=== PATIENT | male | born 1945 | race African-American/Black ===

== ENCOUNTER 2018-01-02 16:42 | Inpatient (IN) | payer MEDICARE, OTHER ==
[~2018-01-02] VITALS: Ht 175.3 cm; Wt 60.8 kg
[2018-01-02] MEDS ORDERED: ALBUTEROL (0.083%) 2.5MG/3ML NEB HHN STA (17:06)
[2018-01-02] MEDS ORDERED: IPRATROPIUM BROMIDE (0.02%) 0.5MG/2.5ML NEB HHN STA (17:06)
[2018-01-02] MEDS ORDERED: METHYLPREDNISOLONE SOD SUCC 125 MG/2 ML VIAL IV STA (17:06)
[2018-01-02] MEDS ORDERED: CEFTRIAXONE SODIUM 1 G/VIAL IM ONE (17:15)
[2018-01-02] MEDS ORDERED: MAGNESIUM 2 G PREMIX 50 ML IV ONE (17:15)
[2018-01-02 17:27] LABS: BASOPHILS % 1.2 % (0.0-2.0); EOSINOPHILS % 1.1 % (0.0-5.0); HEMATOCRIT. 42.7 % (42.0-52.0); HEMOGLOBIN. 14.3 g/dL (14.0-18.0); LYMPHOCYTES % 23.6 % (20.0-50.0); MEAN CORPUSCULAR HEMOGLOBIN 29.4 pg (28.0-32.0); MEAN CORPUSCULAR VOLUME 87.4 fL (80.0-94.0); MEAN PLATELET VOLUME 8.9 fl (7.4-10.4); MONOCYTES % 8.2 % (2.0-8.0); NEUTROPHILS % 65.9 % (40.0-76.0); PLATELET 200 x1000/uL (130-400); RED BLOOD CELL COUNT 4.89 mill/uL (4.7-6.1); RED CELL DISTRIBUTION WIDTH 15.4 % (11.6-14.6)
[2018-01-02 17:40] LABS: CHLORIDE 98 mEq/L (98-107)
[2018-01-02] MEDS ORDERED: FUROSEMIDE 20MG/2ML VIAL IVP ONE (18:15)
[2018-01-02] MEDS ORDERED: CEFTRIAXONE 1 G PREMIX 50 ML IV ONE (18:30)
[2018-01-02] MEDS ORDERED: POTASSIUM CHLORIDE 20MEQ TABLET SR PO NR (18:45)
[2018-01-02] MEDS ORDERED: CLONIDINE 0.1MG TABLET PO PRN (18:45)
[2018-01-02] MEDS ORDERED: MAGNESIUM/ALUMINUM HYDROXIDE/SIMETHICONE 30ML UDC PO PRN (18:45)
[2018-01-02] MEDS ORDERED: DOCUSATE SODIUM 100MG CAPSULE PO PRN (18:45)
[2018-01-02] MEDS ORDERED: ONDANSETRON HCL 4MG/2ML INJ IV PRN (18:45)
[2018-01-02] MEDS ORDERED: NITROGLYCERIN 0.4MG TABLET SL SL PRN (18:45)
[2018-01-02] MEDS ORDERED: IPRATROPIUM/ALBUTEROL 0.5-3(2.5)MG/3ML NEB INH PRN (18:45)
[2018-01-02] MEDS ORDERED: NA PHOS,M-B/NA PHOS,DI-BA ENEMA 118ML PR PRN (18:45)
[2018-01-02] MEDS ORDERED: ACETAMINOPHEN 325MG TABLET PO PRN (18:45)
[2018-01-02] MEDS ORDERED: KCL 20MEQ/100ML PREMIX 100 ML IV NR (19:00)
[2018-01-02] MEDS ORDERED: MAGNESIUM SULFATE 2 GM in DEXTROSE 5% WATER 50 ML IV NR (19:00)
[2018-01-02] MEDS ORDERED: AZITHROMYCIN 500 MG in DEXT 5% WATER 250 ML IV SCH (21:30)
[2018-01-02 22:00] VITALS: BP 158/70
[2018-01-02] MEDS: FAMOTIDINE 20MG TABLET PO SCH (23:00)
[2018-01-02] MEDS ORDERED: LEVOFLOXACIN 500MG PREMIX 100 ML IV SCH (23:00)
[2018-01-02] MEDS: GUAIFENESIN/DM 600MG/30MG ER TAB 12HR PO SCH (23:00)
[2018-01-02] MEDS: FUROSEMIDE 20MG/2ML VIAL IVP SCH (23:01)
[2018-01-02] MEDS: METHYLPREDNISOLONE SOD SUCC 125 MG/2 ML VIAL IV SCH (23:01)
[2018-01-02] MEDS: SPIRONOLACTONE 25MG TABLET PO SCH (23:01)
[2018-01-02] MEDS: DILTIAZEM HCL 60MG TABLET PO SCH (23:01)
[2018-01-03] VITALS (8 sets, daily range): BP systolic 113–164; BP diastolic 58–75
[2018-01-03 00:08] LABS: CREATINE KINASE MB FRACTION 1.2 ng/mL (0.5-3.6)
[2018-01-03] MEDS ORDERED: HYDR-4009 MT (01:26)
[2018-01-03] MEDS ORDERED: LISI-604 MT (01:26)
[2018-01-03] MEDS: GUAIFENESIN 200MG/10ML SUGAR FREE UDC PO PRN ×4 (01:44→21:34)
[2018-01-03] MEDS: ZOLPIDEM TARTRATE 5MG TABLET PO PRN ×2 (01:44→23:22)
[2018-01-03 02:49] LABS: *AMPHETAMINES SCREEN URINE NEGATIVE (NEGATIVE); *BARBITURATES SCREEN URINE NEGATIVE (NEGATIVE); *BENZODIAZEPINES SCREEN URINE NEGATIVE (NEGATIVE); *COCAINE SCREEN URINE NEGATIVE (NEGATIVE); CANNABINOID URINE SCREEN NEGATIVE (NEGATIVE); METHADONE URINE SCREEN NEGATIVE (NEGATIVE); OPIATES URINE SCREEN PRESUMTIVE POSITIVE (NEGATIVE); PHENCYCLIDINE URINE SCREEN NEGATIVE (NEGATIVE)
[2018-01-03] MEDS: METHYLPREDNISOLONE SOD SUCC 125 MG/2 ML VIAL IV SCH ×3 (05:01→21:36)
[2018-01-03] MEDS: DILTIAZEM HCL 60MG TABLET PO SCH ×4 (05:02→23:22)
[2018-01-03 06:55] LABS: CREATINE KINASE 93 IU/L (39-308); CREATINE KINASE MB FRACTION 1.2 ng/mL (0.5-3.6)
[2018-01-03] MEDS: FUROSEMIDE 20MG/2ML VIAL IVP SCH ×2 (08:29→21:35)
[2018-01-03] MEDS: SPIRONOLACTONE 25MG TABLET PO SCH ×2 (08:30→21:34)
[2018-01-03] MEDS: TRAMADOL 50MG TABLET PO PRN ×3 (08:30→14:51)
[2018-01-03] MEDS: FAMOTIDINE 20MG TABLET PO SCH ×2 (08:30→21:34)
[2018-01-03] MEDS: GUAIFENESIN/DM 600MG/30MG ER TAB 12HR PO SCH ×2 (08:34→21:34)
[2018-01-03] MEDS ORDERED: INFLUENZA VIRUS VACCINE(AFLURIA) 0.5ML SYR IM ONE (10:00)
[2018-01-03 13:29] LABS: CHLORIDE 99 mEq/L (98-107)
[2018-01-03] MEDS: HYDROCODONE/ACETAMINOPHEN 5/325MG TABLET PO PRN ×2 (16:00→21:36)
[2018-01-03] MEDS: LEVOFLOXACIN 500MG PREMIX 100 ML IV SCH (18:03)
[2018-01-03] MEDS: ENOXAPARIN 40MG/0.4ML SYR SUBCUT SCH (21:34)
[2018-01-04] MEDS: IPRATROPIUM/ALBUTEROL 0.5-3(2.5)MG/3ML NEB HHN SCH ×6 (01:49→21:57)
[2018-01-04 04:40] VITALS: BP 126/60
[2018-01-04] MEDS: HYDROCODONE/ACETAMINOPHEN 5/325MG TABLET PO PRN ×3 (04:42→19:59)
[2018-01-04] MEDS: METHYLPREDNISOLONE SOD SUCC 125 MG/2 ML VIAL IV SCH ×3 (06:10→21:21)
[2018-01-04] MEDS: DILTIAZEM HCL 60MG TABLET PO SCH ×3 (06:21→17:43)
[2018-01-04 08:00] VITALS: BP 129/61
[2018-01-04] MEDS: GUAIFENESIN 200MG/10ML SUGAR FREE UDC PO PRN ×2 (09:03→17:44)
[2018-01-04] MEDS: FUROSEMIDE 20MG/2ML VIAL IVP SCH ×2 (09:04→21:22)
[2018-01-04] MEDS: GUAIFENESIN/DM 600MG/30MG ER TAB 12HR PO SCH ×2 (09:04→19:57)
[2018-01-04] MEDS: FAMOTIDINE 20MG TABLET PO SCH ×2 (09:04→19:57)
[2018-01-04] MEDS: SPIRONOLACTONE 25MG TABLET PO SCH ×2 (09:04→19:58)
[2018-01-04 12:00] VITALS: BP 129/75
[2018-01-04 16:00] VITALS: BP 139/61
[2018-01-04] MEDS: LEVOFLOXACIN 500MG PREMIX 100 ML IV SCH (17:43)
[2018-01-04 20:00] VITALS: BP 136/46
[2018-01-04] MEDS: ENOXAPARIN 40MG/0.4ML SYR SUBCUT SCH (21:23)
[2018-01-05] VITALS: BP 127/61
[2018-01-05] MEDS: ZOLPIDEM TARTRATE 5MG TABLET PO PRN (00:05)
[2018-01-05] MEDS: GUAIFENESIN 200MG/10ML SUGAR FREE UDC PO PRN ×3 (00:05→09:05)
[2018-01-05] MEDS: HYDROCODONE/ACETAMINOPHEN 5/325MG TABLET PO PRN ×2 (01:06→07:23)
[2018-01-05] MEDS: IPRATROPIUM/ALBUTEROL 0.5-3(2.5)MG/3ML NEB HHN SCH ×3 (01:12→09:12)
[2018-01-05 04:00] VITALS: BP 142/47
[2018-01-05] MEDS: METHYLPREDNISOLONE SOD SUCC 125 MG/2 ML VIAL IV SCH (05:38)
[2018-01-05] MEDS: DILTIAZEM HCL 60MG TABLET PO SCH ×2 (05:41)
[2018-01-05 08:00] VITALS: BP 133/95
[2018-01-05] MEDS: FUROSEMIDE 20MG/2ML VIAL IVP SCH (09:05)
[2018-01-05] MEDS: FAMOTIDINE 20MG TABLET PO SCH (09:06)
[2018-01-05] MEDS: GUAIFENESIN/DM 600MG/30MG ER TAB 12HR PO SCH (09:06)
[2018-01-05] MEDS: SPIRONOLACTONE 25MG TABLET PO SCH (09:06)
[2018-01-05] MEDS ORDERED: LEVOFLOXACIN 500MG TABLET PO SCH (11:00)
[2018-01-05 11:25] VITALS: BP 133/89
== END 2018-01-05 11:57 | disposition home or self-care (01) | DRG 291 ==
LOC: EDBD 16:42 → ER 16:42 → 7WST 18:22 → SUPCPDRO 18:31 → EDBEDREQTM 18:35 → EDBEDREQ 18:35 → ENRESERV 20:31 → 7WST 22:20
PROVIDERS: ADMIT Internal Medicine; ATTEND Internal Medicine
DX: I11.0 Hypertensive heart disease with heart failure (principal); J96.00 Acute respiratory failure, unspecified whether with hypoxia or hypercapnia; E44.1 Mild protein-calorie malnutrition; J44.1 Chronic obstructive pulmonary disease with (acute) exacerbation; Z68.1 Body mass index [BMI] 19.9 or less, adult; I50.33 Acute on chronic diastolic (congestive) heart failure; E87.6 Hypokalemia; F17.210 Nicotine dependence, cigarettes, uncomplicated; Z88.6 Allergy status to analgesic agent; Z71.6 Tobacco abuse counseling
CPT/HCPCS: 36415; 71045; 80048; 80061; 80305; 82550; 82553; 83036; 83880; 84484; 85379; 90686; 93005; 93306; 93970; 94640; 96374; 99285; G0482; J0456; J0696; J1650; J1940; J1956; J2930; J3475; J3480; J7050; J7060; J7611; J7620

== ENCOUNTER 2018-02-26 21:16 | Inpatient (IN) | payer OTHER ==
[~2018-02-26] VITALS: Ht 175.3 cm; Wt 63.5 kg
[~2018-02-26 21:16] MED LIST: HYDR-4009 MT; LISI-604 MT
[2018-02-26] MEDS ORDERED: METHYLPREDNISOLONE SOD SUCC 125 MG/2 ML VIAL IV STA (21:39)
[2018-02-26] MEDS ORDERED: IPRATROPIUM BROMIDE (0.02%) 0.5MG/2.5ML NEB HHN STA (21:39)
[2018-02-26] MEDS ORDERED: ALBUTEROL (0.083%) 2.5MG/3ML NEB HHN STA (21:39)
[2018-02-26] MEDS ORDERED: HYDROCODONE/ACETAMINOPHEN 5/325MG TABLET PO ONE (21:45)
[2018-02-26] MEDS ORDERED: LORAZEPAM 2MG/ML CPJ IV ONE (22:45)
[2018-02-26 22:53] LABS: BASOPHILS % 0.2 % (0.0-2.0); EOSINOPHILS % 0.2 % (0.0-5.0); HEMATOCRIT. 33.9 % (42.0-52.0); HEMOGLOBIN. 10.9 g/dL (14.0-18.0); LYMPHOCYTES % 9.9 % (20.0-50.0); MEAN CORPUSCULAR HEMOGLOBIN 28.6 pg (28.0-32.0); MEAN CORPUSCULAR VOLUME 88.9 fL (80.0-94.0); MEAN PLATELET VOLUME 8.2 fl (7.4-10.4); MONOCYTES % 8.1 % (2.0-8.0); NEUTROPHILS % 81.6 % (40.0-76.0); PLATELET 273 x1000/uL (130-400); RED BLOOD CELL COUNT 3.81 mill/uL (4.7-6.1); RED CELL DISTRIBUTION WIDTH 16.5 % (11.6-14.6)
[2018-02-26 22:56] LABS: CHLORIDE 93 mEq/L (98-107)
[2018-02-27] VITALS (7 sets, daily range): BP systolic 89–147; BP diastolic 36–74
[2018-02-27] MEDS ORDERED: SODIUM CHLORIDE 0.9% 1,000 ML IV ONE
[2018-02-27] MEDS ORDERED: SODIUM CHLORIDE 0.9% 1,000 ML IV SCH (01:52)
[2018-02-27] MEDS ORDERED: LORAZEPAM 2MG/ML CPJ IV PRN ×2 (11:00)
[2018-02-27] MEDS ORDERED: IPRATROPIUM/ALBUTEROL 0.5-3(2.5)MG/3ML NEB INH PRN (11:00)
[2018-02-27] MEDS ORDERED: ONDANSETRON HCL 4MG/2ML INJ IV PRN (11:00)
[2018-02-27] MEDS ORDERED: CLONIDINE 0.1MG TABLET PO PRN (11:00)
[2018-02-27] MEDS ORDERED: ACETAMINOPHEN 325MG TABLET PO PRN (11:00)
[2018-02-27] MEDS ORDERED: HYDROCODONE/ACETAMINOPHEN 5/325MG TABLET PO PRN (11:00)
[2018-02-27] MEDS ORDERED: AZITHROMYCIN 500 MG TABLET PO NR (11:00)
[2018-02-27] MEDS ORDERED: METHYLPREDNISOLONE SOD SUCC 40 MG/ML VIAL IV SCH (11:00)
[2018-02-27] MEDS ORDERED: IPRATROPIUM/ALBUTEROL 0.5-3(2.5)MG/3ML NEB HHN PRN (11:00)
[2018-02-27] MEDS ORDERED: ENOXAPARIN 30MG/0.3ML SYR SUBCUT SCH (11:30)
[2018-02-27] MEDS: IPRATROPIUM/ALBUTEROL 0.5-3(2.5)MG/3ML NEB HHN SCH ×3 (11:49→20:23)
[2018-02-27] MEDS: NICOTINE 14MG PATCH TD SCH (11:54)
[2018-02-27] MEDS: METHYLPREDNISOLONE SOD SUCC 40 MG/ML VIAL IV SCH ×2 (11:54→18:15)
[2018-02-27] MEDS: THIAMINE HCL 100MG TABLET PO SCH (11:55)
[2018-02-27] MEDS: FOLIC ACID 1MG TABLET PO SCH (11:55)
[2018-02-27] MEDS: MULTIVITAMINS,THER W-MINERALS TABLET PO SCH (11:55)
[2018-02-27] MEDS: SODIUM CHLORIDE 0.9% 1,000 ML IV SCH (11:55)
[2018-02-27 12:17] LABS: CHLORIDE 100 mEq/L (98-107)
[2018-02-27] MEDS ORDERED: DEXTROSE 50% WATER 50ML SYRINGE IV PRN (12:45)
[2018-02-27] MEDS ORDERED: LEVOFLOXACIN 500MG PREMIX 100 ML IV NR (13:00)
[2018-02-27 15:58] LABS: CREATINE KINASE 326 IU/L (39-308)
[2018-02-27 15:59] LABS: CREATINE KINASE MB FRACTION 4.3 ng/mL (0.5-3.6)
[2018-02-27 16:23] LABS: CLARITY URINE CLEAR (CLEAR); COLOR URINE YELLOW (YELLOW); KETONES URINE NEGATIVE (NEGATIVE); LEUKOCYTE ESTERASE URINE NEGATIVE (NEGATIVE); NITRITE URINE NEGATIVE (NEGATIVE); OCCULT BLOOD URINE NEGATIVE (NEGATIVE); PROTEIN URINE TRACE (NEGATIVE); SPECIFIC GRAVITY URINE 1.018 (1.005-1.030); UROBILINOGEN URINE 0.2 E.U./dL (0.2-1.0)
[2018-02-27] MEDS: HYDROMORPHONE HCL/PF 2MG/ML CPJ IV PRN (16:43)
[2018-02-27 16:49] LABS: *AMPHETAMINES SCREEN URINE NEGATIVE (NEGATIVE); *BARBITURATES SCREEN URINE NEGATIVE (NEGATIVE); *BENZODIAZEPINES SCREEN URINE NEGATIVE (NEGATIVE); *COCAINE SCREEN URINE NEGATIVE (NEGATIVE); METHADONE URINE SCREEN NEGATIVE (NEGATIVE); OPIATES URINE SCREEN PRESUMTIVE POSITIVE (NEGATIVE)
[2018-02-27 16:50] LABS: CANNABINOID URINE SCREEN NEGATIVE (NEGATIVE); PHENCYCLIDINE URINE SCREEN NEGATIVE (NEGATIVE)
[2018-02-27] MEDS: BLOOD SUGAR DIAGNOSTIC STRIP TEST SCH ×2 (17:17→20:59)
[2018-02-27] MEDS: INSULIN LISPRO 100 UNITS/ML SUBCUT SCH ×2 (17:42→21:00)
[2018-02-27] MEDS ORDERED: LEVOFLOXACIN 250MG PREMIX 50 ML IV SCH (21:00)
[2018-02-27] MEDS: GUAIFENESIN 600MG ER TABLET PO SCH (21:01)
[2018-02-27] MEDS: FLUTICASONE PROPIONATE 50MCG/SPRAY BOTTLE BOTHNSTRLS SCH (21:02)
[2018-02-28] VITALS: BP 140/65
[2018-02-28] MEDS: IPRATROPIUM/ALBUTEROL 0.5-3(2.5)MG/3ML NEB HHN SCH ×3 (00:09→07:11)
[2018-02-28 00:26] LABS: CREATINE KINASE 302 IU/L (39-308)
[2018-02-28 00:27] LABS: CREATINE KINASE MB FRACTION 5.3 ng/mL (0.5-3.6)
[2018-02-28] MEDS: HYDROMORPHONE HCL/PF 2MG/ML CPJ IV PRN ×2 (01:58→06:40)
[2018-02-28] MEDS: METHYLPREDNISOLONE SOD SUCC 40 MG/ML VIAL IV SCH (03:55)
[2018-02-28 04:00] VITALS: BP 137/53
[2018-02-28] MEDS: SODIUM CHLORIDE 0.9% 1,000 ML IV SCH (05:37)
[2018-02-28] MEDS: BLOOD SUGAR DIAGNOSTIC STRIP TEST SCH (06:04)
[2018-02-28] MEDS: INSULIN LISPRO 100 UNITS/ML SUBCUT SCH (06:30)
[2018-02-28 08:00] VITALS: BP 102/75
[2018-02-28 08:39] LABS: HEMATOCRIT. 29.8 % (42.0-52.0); MEAN CORPUSCULAR HEMOGLOBIN 29.4 pg (28.0-32.0); MEAN CORPUSCULAR VOLUME 87.5 fL (80.0-94.0); MEAN PLATELET VOLUME 8.2 fl (7.4-10.4); PLATELET 255 x1000/uL (130-400); RED BLOOD CELL COUNT 3.41 mill/uL (4.7-6.1); RED CELL DISTRIBUTION WIDTH 16.5 % (11.6-14.6)
[2018-02-28] MEDS ORDERED: AZITHROMYCIN 250 MG TABLET PO SCH (09:00)
[2018-02-28] MEDS: FLUTICASONE PROPIONATE 50MCG/SPRAY BOTTLE BOTHNSTRLS SCH (09:07)
[2018-02-28] MEDS: MULTIVITAMINS,THER W-MINERALS TABLET PO SCH (09:08)
[2018-02-28] MEDS: GUAIFENESIN 600MG ER TABLET PO SCH (09:08)
[2018-02-28] MEDS: NICOTINE 14MG PATCH TD SCH (09:08)
[2018-02-28] MEDS: FOLIC ACID 1MG TABLET PO SCH (09:08)
[2018-02-28] MEDS: THIAMINE HCL 100MG TABLET PO SCH (09:08)
[2018-02-28 09:14] LABS: CHLORIDE 101 mEq/L (98-107)
[2018-02-28 09:21] LABS: PHOSPHORUS 2.2 mg/dL (2.5-4.9)
[2018-02-28] MEDS ORDERED: ENOXAPARIN 40MG/0.4ML SYR SUBCUT SCH (12:00)
[2018-02-28] MEDS ORDERED: LEVOFLOXACIN 250MG PREMIX 50 ML IV SCH ×2 (13:00→21:00)
[2018-02-28 13:51] LABS: PLATELET ESTIMATE NORMAL
== END 2018-02-28 10:35 | disposition left against medical advice (07) | DRG 871 ==
LOC: ER 02-27 → 5WST 02-27 01:53 → ENRESERV 02-27 02:58
PROVIDERS: ADMIT Internal Medicine Nephrology; ATTEND Internal Medicine Nephrology
DX: A41.9 Sepsis, unspecified organism (principal); J18.9 Pneumonia, unspecified organism; J96.00 Acute respiratory failure, unspecified whether with hypoxia or hypercapnia; J44.1 Chronic obstructive pulmonary disease with (acute) exacerbation; N17.9 Acute kidney failure, unspecified; J44.0 Chronic obstructive pulmonary disease with (acute) lower respiratory infection; I50.9 Heart failure, unspecified; Z53.21 Procedure and treatment not carried out due to patient leaving prior to being seen by health care provider; M54.5 Low back pain; E11.9 Type 2 diabetes mellitus without complications; F10.10 Alcohol abuse, uncomplicated; F17.210 Nicotine dependence, cigarettes, uncomplicated; F41.9 Anxiety disorder, unspecified; G89.29 Other chronic pain; I11.0 Hypertensive heart disease with heart failure; Z88.6 Allergy status to analgesic agent; Z79.899 Other long term (current) drug therapy; Z71.6 Tobacco abuse counseling
CPT/HCPCS: 36415; 71045; 80048; 80305; 82550; 82553; 82962; 83735; 83880; 84100; 84484; 87804; 93005; 93970; 94640; 96361; 96374; 96375; 99285; J1170; J1650; J1815; J1956; J2060; J2920; J2930; J7030; J7611; J7620

== ENCOUNTER 2021-12-31 19:51 | Inpatient (IN) | payer MEDICARE, OTHER, MEDICAID ==
[~2021-12-31] VITALS: Ht 175.3 cm; Wt 93.0 kg
[~2021-12-31 19:51] MED LIST changes: -LISI-604 MT; +LISI20TA31 MT
[2021-12-31] MEDS ORDERED: IPRATROPIUM BROMIDE (0.02%) 0.5MG/2.5ML NEB HHN STA (20:43)
[2021-12-31] MEDS ORDERED: METHYLPREDNISOLONE SOD SUCC 125 MG/2 ML VIAL IV STA (20:43)
[2021-12-31] MEDS ORDERED: ALBUTEROL (0.083%) 2.5MG/3ML NEB HHN STA (20:43)
[2021-12-31] MEDS ORDERED: FUROSEMIDE 40MG/4ML VIAL IVP ONE (20:45)
[2021-12-31] MEDS ORDERED: AZITHROMYCIN 500MG/250ML 250 ML IV ONE (20:45)
[2021-12-31] MEDS ORDERED: ACETAMINOPHEN 325MG TABLET PO ONE (20:45)
[2021-12-31 22:16] LABS: BASOPHILS % 0.7 % (0.0-2.0); EOSINOPHILS % 2.8 % (0.0-5.0); HEMATOCRIT. 41.1 % (42.0-52.0); HEMOGLOBIN. 13.9 g/dL (14.0-18.0); LYMPHOCYTES % 51.6 % (20.0-50.0); MEAN CORPUSCULAR HEMOGLOBIN 29.1 pg (28.0-32.0); MEAN PLATELET VOLUME 8.6 fl (7.4-10.4); MONOCYTES % 7.9 % (2.0-8.0); PLATELET 166 x1000/uL (130-400); RED BLOOD CELL COUNT 4.77 mill/uL (4.7-6.1); RED CELL DISTRIBUTION WIDTH 15.4 % (11.6-14.6)
[2021-12-31 22:23] LABS: PROTHROMBIN TIME 10.9 sec (9.6-11.0)
[2021-12-31 22:38] LABS: CHLORIDE 99 mEq/L (98-107)
[2021-12-31] MEDS ORDERED: IPRATROPIUM/ALBUTEROL 0.5-3(2.5)MG/3ML NEB NEB PRN (23:30)
[2021-12-31] MEDS ORDERED: DOCUSATE SODIUM 100MG CAPSULE PO PRN (23:30)
[2021-12-31] MEDS ORDERED: ACETAMINOPHEN 325MG TABLET PO PRN (23:30)
[2021-12-31] MEDS ORDERED: DIPHENHYDRAMINE 50MG/ML VIAL IV PRN (23:30)
[2021-12-31] MEDS ORDERED: ONDANSETRON HCL 4MG/2ML INJ IV PRN (23:30)
[2022-01-01] MEDS: MORPHINE SULFATE 2 MG/ML CPJ (NOT FOR IM USE) IV PRN ×4 (01:14→23:25)
[2022-01-01 05:46] VITALS: BP 154/69
[2022-01-01 05:49] VITALS: BP 154/69
[2022-01-01] MEDS ORDERED: NALOXONE HCL 0.4MG/ML VIAL IV PRN (06:00)
[2022-01-01] MEDS: METHYLPREDNISOLONE SOD SUCC 125 MG/2 ML VIAL IV SCH ×4 (06:30→23:11)
[2022-01-01 08:00] VITALS: BP 170/68
[2022-01-01] MEDS ORDERED: ASPIRIN 81MG EC TABLET PO SCH (09:00)
[2022-01-01] MEDS: ENOXAPARIN 40MG/0.4ML SYR SUBCUT SCH (09:03)
[2022-01-01] MEDS: HYDROCODONE/ACETAMINOPHEN 5/325MG TABLET PO PRN (09:05)
[2022-01-01] MEDS: NITROGLYCERIN 0.4MG TABLET SL SL PRN (10:18)
[2022-01-01 11:05] LABS: *AMPHETAMINES SCREEN URINE NEGATIVE (NEGATIVE); *BARBITURATES SCREEN URINE NEGATIVE (NEGATIVE); *BENZODIAZEPINES SCREEN URINE NEGATIVE (NEGATIVE); *COCAINE SCREEN URINE NEGATIVE (NEGATIVE); CANNABINOID URINE SCREEN NEGATIVE (NEGATIVE); METHADONE URINE SCREEN NEGATIVE (NEGATIVE); OPIATES URINE SCREEN PRESUMTIVE POSITIVE (NEGATIVE); PHENCYCLIDINE URINE SCREEN NEGATIVE (NEGATIVE)
[2022-01-01 11:12] LABS: HEMATOCRIT. 38.9 % (42.0-52.0); HEMOGLOBIN. 13.2 g/dL (14.0-18.0); MEAN CORPUSCULAR HEMOGLOBIN 29.3 pg (28.0-32.0); MEAN CORPUSCULAR VOLUME 86.2 fL (80.0-94.0); MEAN PLATELET VOLUME 9.3 fl (7.4-10.4); PLATELET 148 x1000/uL (130-400); RED BLOOD CELL COUNT 4.51 mill/uL (4.7-6.1); RED CELL DISTRIBUTION WIDTH 15.1 % (11.6-14.6)
[2022-01-01 11:22] LABS: CHLORIDE 98 mEq/L (98-107)
[2022-01-01 11:25] LABS: PHOSPHORUS 2.2 mg/dL (2.5-4.9)
[2022-01-01 11:29] LABS: CREATINE KINASE MB FRACTION 1.5 ng/mL (0.5-3.6)
[2022-01-01 12:13] VITALS: BP 144/68
[2022-01-01] MEDS ORDERED: MAGNESIUM 2 G PREMIX 50 ML IV NR ×2 (14:00→23:00)
[2022-01-01 14:01] LABS: PLATELET ESTIMATE NORMAL
[2022-01-01 16:11] VITALS: BP 144/64
[2022-01-01 17:13] LABS: CREATINE KINASE MB FRACTION 1.3 ng/mL (0.5-3.6)
[2022-01-01 20:00] VITALS: BP 113/61
[2022-01-02] VITALS: BP 130/62
[2022-01-02 04:00] VITALS: BP 134/52
[2022-01-02] MEDS: METHYLPREDNISOLONE SOD SUCC 125 MG/2 ML VIAL IV SCH ×2 (05:17→12:47)
[2022-01-02] MEDS ORDERED: VERAPAMIL HCL 2.5 MG/1 ML 2ML VIAL IV ONE (07:37)
[2022-01-02] MEDS ORDERED: LIDOCAINE HCL/PF 2% 20MG/ML 5 ML/VIAL ONE (07:37)
[2022-01-02] MEDS ORDERED: IODIXANOL 320MG/ML 100 ML BOTTLE IV ONE (07:37)
[2022-01-02] MEDS ORDERED: HEPARIN 1000 UNITS/ML 10ML ONE (07:37)
[2022-01-02 08:00] VITALS: BP 153/76
[2022-01-02] MEDS ORDERED: MIDAZOLAM HCL 2 MG/2 ML VIAL ONE (08:07)
[2022-01-02] MEDS ORDERED: DIPHENHYDRAMINE 50MG/ML VIAL ONE (08:07)
[2022-01-02] MEDS ORDERED: FENTANYL CITRATE/PF 50MCG/ML 2ML VIAL ONE (08:08)
[2022-01-02] MEDS ORDERED: LIDOCAINE HCL 1% 20ML VIAL (Pyxis) INJ ONE (08:48)
[2022-01-02] MEDS: ENOXAPARIN 40MG/0.4ML SYR SUBCUT SCH (09:00)
[2022-01-02] MEDS ORDERED: HYDRALAZINE 20MG/ML VIAL ONE ×2 (09:18→10:19)
[2022-01-02] MEDS ORDERED: ATROPINE SULFATE 1MG/10ML SYR IV PRN (10:00)
[2022-01-02] MEDS ORDERED: NITROGLYCERIN 0.4MG TABLET SL SL ONE (10:15)
[2022-01-02] MEDS: BUDESONIDE 0.5MG/2ML NEB HHN SCH ×2 (10:35→22:10)
[2022-01-02 12:30] VITALS: BP 139/54
[2022-01-02 12:34] LABS: BG BASE EXCESS 6.1 mmol/L (-2.0-2.0); BG CARBOXYHEMOGLOBIN 0.4 % (0.5-1.5); BG DEOXYHEMOGLOBIN 8.8 % (0.0-5.0); BG HCO3 ACT 29.9 mmol/L (22.0-26.0); BG METHEMOGLOBIN 0.3 % (0.0-1.5); BG OXYGEN SATURATION 91.1 % (92.0-98.5); BG OXYHEMOGLOBIN 90.5 % (94.0-97.0); BG PCO2 40.2 mmHg (35.0-45.0); BG PO2 56.6 mmHg (75.0-100.0); BG SAMPLE SITE RIGHT RADIAL; BG TOTAL HEMOGLOBIN 13.7 g/dL (12.0-18.0); BG VENT MODE ROOM AIR
[2022-01-02] MEDS: MORPHINE SULFATE 2 MG/ML CPJ (NOT FOR IM USE) IV PRN ×3 (12:50→22:28)
[2022-01-02] MEDS: IPRATROPIUM/ALBUTEROL 0.5-3(2.5)MG/3ML NEB HHN SCH ×3 (12:59→22:10)
[2022-01-02 16:20] VITALS: BP 121/52
[2022-01-02] MEDS: NITROGLYCERIN 0.4MG TABLET SL SL PRN ×2 (18:37→23:05)
[2022-01-02] MEDS: HYDROCODONE/ACETAMINOPHEN 5/325MG TABLET PO PRN (19:41)
[2022-01-02 20:00] VITALS: BP 135/60
[2022-01-02] MEDS: METHYLPREDNISOLONE SOD SUCC 40 MG/ML VIAL IV SCH (21:47)
[2022-01-03] VITALS (7 sets, daily range): BP systolic 117–162; BP diastolic 46–73
[2022-01-03] MEDS: IPRATROPIUM/ALBUTEROL 0.5-3(2.5)MG/3ML NEB HHN SCH ×6 (00:50→21:46)
[2022-01-03] MEDS: METHYLPREDNISOLONE SOD SUCC 40 MG/ML VIAL IV SCH ×3 (05:42→21:43)
[2022-01-03] MEDS: HYDROCODONE/ACETAMINOPHEN 5/325MG TABLET PO PRN ×2 (05:43→05:55)
[2022-01-03] MEDS: MORPHINE SULFATE 2 MG/ML CPJ (NOT FOR IM USE) IV PRN ×3 (05:58→21:34)
[2022-01-03 07:44] LABS: HEMATOCRIT. 35.5 % (42.0-52.0); MEAN CORPUSCULAR HEMOGLOBIN 29.1 pg (28.0-32.0); PLATELET 136 x1000/uL (130-400); RED BLOOD CELL COUNT 4.13 mill/uL (4.7-6.1); RED CELL DISTRIBUTION WIDTH 15.6 % (11.6-14.6)
[2022-01-03] MEDS: BUDESONIDE 0.5MG/2ML NEB HHN SCH (09:19)
[2022-01-03] MEDS: ENOXAPARIN 40MG/0.4ML SYR SUBCUT SCH (09:28)
[2022-01-03] MEDS: NITROGLYCERIN 0.4MG TABLET SL SL PRN (09:29)
[2022-01-03 09:48] LABS: CHLORIDE 103 mEq/L (98-107)
[2022-01-03 09:55] LABS: PHOSPHORUS 3.6 mg/dL (2.5-4.9)
[2022-01-03] MEDS ORDERED: IPRA3AMP9 NEB (15:50)
[2022-01-03] MEDS ORDERED: FLUT1BLS12 IH (15:51)
[2022-01-03 16:45] LABS: PLATELET ESTIMATE NORMAL
[2022-01-04] VITALS: BP 142/74
[2022-01-04] MEDS: IPRATROPIUM/ALBUTEROL 0.5-3(2.5)MG/3ML NEB HHN SCH ×7 (01:04→22:30)
[2022-01-04 06:00] VITALS: BP 164/81
[2022-01-04] MEDS: METHYLPREDNISOLONE SOD SUCC 40 MG/ML VIAL IV SCH ×2 (07:02→13:10)
[2022-01-04 07:48] LABS: HEMATOCRIT. 36.1 % (42.0-52.0); HEMOGLOBIN. 12.1 g/dL (14.0-18.0); MEAN CORPUSCULAR HEMOGLOBIN 29.1 pg (28.0-32.0); MEAN CORPUSCULAR VOLUME 86.8 fL (80.0-94.0); MEAN PLATELET VOLUME 9.3 fl (7.4-10.4); PLATELET 121 x1000/uL (130-400); RED BLOOD CELL COUNT 4.16 mill/uL (4.7-6.1); RED CELL DISTRIBUTION WIDTH 15.1 % (11.6-14.6)
[2022-01-04 08:00] VITALS: BP 158/64
[2022-01-04 08:43] LABS: PLATELET ESTIMATE SLIGHTLY DECREASED
[2022-01-04] MEDS: ENOXAPARIN 40MG/0.4ML SYR SUBCUT SCH (08:46)
[2022-01-04] MEDS: MORPHINE SULFATE 2 MG/ML CPJ (NOT FOR IM USE) IV PRN ×3 (08:48→21:46)
[2022-01-04] MEDS: BUDESONIDE 0.5MG/2ML NEB HHN SCH ×2 (09:18→22:30)
[2022-01-04 10:09] LABS: CHLORIDE 102 mEq/L (98-107)
[2022-01-04 12:00] VITALS: BP 140/60
[2022-01-04] MEDS: AMLODIPINE 10MG TABLET PO SCH (15:09)
[2022-01-04 16:00] VITALS: BP 142/62
[2022-01-04] MEDS: PREDNISONE 20MG TABLET PO SCH (18:03)
[2022-01-05] MEDS: IPRATROPIUM/ALBUTEROL 0.5-3(2.5)MG/3ML NEB HHN SCH ×5 (01:53→20:39)
[2022-01-05] MEDS: MORPHINE SULFATE 2 MG/ML CPJ (NOT FOR IM USE) IV PRN ×4 (04:42→21:34)
[2022-01-05 07:07] LABS: BASOPHILS % 0.1 % (0.0-2.0); LYMPHOCYTES % 8.1 % (20.0-50.0); MEAN CORPUSCULAR HEMOGLOBIN 28.9 pg (28.0-32.0); MEAN CORPUSCULAR VOLUME 86.8 fL (80.0-94.0); MEAN PLATELET VOLUME 9.4 fl (7.4-10.4); MONOCYTES % 6.5 % (2.0-8.0); NEUTROPHILS % 85.3 % (40.0-76.0); PLATELET 120 x1000/uL (130-400); RED BLOOD CELL COUNT 4.15 mill/uL (4.7-6.1); RED CELL DISTRIBUTION WIDTH 15.3 % (11.6-14.6)
[2022-01-05 08:00] VITALS: BP 154/75
[2022-01-05 08:09] LABS: CHLORIDE 101 mEq/L (98-107)
[2022-01-05] MEDS ORDERED: LIDOCAINE HCL/PF 1% 10 MG/ML 5ML VIAL ONE (08:49)
[2022-01-05] MEDS: PREDNISONE 20MG TABLET PO SCH ×2 (09:01→17:15)
[2022-01-05] MEDS: ENOXAPARIN 40MG/0.4ML SYR SUBCUT SCH (09:01)
[2022-01-05] MEDS: AMLODIPINE 10MG TABLET PO SCH (09:01)
[2022-01-05] MEDS ORDERED: IOHEXOL-350 100 ML BOTTLE ONE ×2 (09:40→12:53)
[2022-01-05 12:00] VITALS: BP 140/70
[2022-01-05] MEDS ORDERED: HYDR-4001 MT (13:56)
[2022-01-05 16:00] VITALS: BP 128/68
[2022-01-05 20:00] VITALS: BP 136/70
[2022-01-06] VITALS: BP 134/59
[2022-01-06] MEDS: IPRATROPIUM/ALBUTEROL 0.5-3(2.5)MG/3ML NEB HHN SCH ×4 (00:42→11:36)
[2022-01-06] MEDS: MORPHINE SULFATE 2 MG/ML CPJ (NOT FOR IM USE) IV PRN ×3 (01:51→11:08)
[2022-01-06 04:00] VITALS: BP 134/69
[2022-01-06 07:02] LABS: BASOPHILS % 0.1 % (0.0-2.0); HEMATOCRIT. 33.5 % (42.0-52.0); HEMOGLOBIN. 11.4 g/dL (14.0-18.0); LYMPHOCYTES % 8.7 % (20.0-50.0); MEAN CORPUSCULAR HEMOGLOBIN 29.2 pg (28.0-32.0); MEAN PLATELET VOLUME 9.8 fl (7.4-10.4); MONOCYTES % 5.2 % (2.0-8.0); PLATELET 118 x1000/uL (130-400); RED CELL DISTRIBUTION WIDTH 15.2 % (11.6-14.6)
[2022-01-06 07:13] LABS: CHLORIDE 99 mEq/L (98-107)
[2022-01-06 08:00] VITALS: BP 130/73
[2022-01-06] MEDS: AMLODIPINE 10MG TABLET PO SCH (08:46)
[2022-01-06] MEDS: PREDNISONE 20MG TABLET PO SCH (08:46)
[2022-01-06] MEDS: ENOXAPARIN 40MG/0.4ML SYR SUBCUT SCH (08:47)
[2022-01-06 12:00] VITALS: BP 103/51
[2022-01-06] MEDS ORDERED: MED4 MT (12:54)
[2022-01-06] MEDS ORDERED: AMLO10TA80 PO (12:54)
[2022-01-06 13:29] VITALS: BP 103/51
== END 2022-01-06 14:50 | disposition home health service (06) | DRG 286 ==
LOC: ER 19:51 → EDBEDREQ 22:33 → EDBEDREQTM 22:33 → EDBEDREQ 01-01 00:07 → MICUSO 01-01 01:19 → 6WST 01-01 05:30
PROVIDERS: ADMIT Internal Medicine Nephrology; ATTEND Internal Medicine Nephrology
PROC: B2111ZZ Fluoroscopy of Multiple Coronary Arteries using Low Osmolar Contrast (ICD-10-PCS; principal; 2022-01-02)
PROC: 4A023N7 Measurement of Cardiac Sampling and Pressure, Left Heart, Percutaneous Approach (ICD-10-PCS; 2022-01-02)
PROC: B41F1ZZ Fluoroscopy of Right Lower Extremity Arteries using Low Osmolar Contrast (ICD-10-PCS; 2022-01-02)
PROC: 02HV33Z Insertion of Infusion Device into Superior Vena Cava, Percutaneous Approach (ICD-10-PCS; 2022-01-05)
PROC: B5181ZA Fluoroscopy of Superior Vena Cava using Low Osmolar Contrast, Guidance (ICD-10-PCS; 2022-01-05)
DX: I25.110 Atherosclerotic heart disease of native coronary artery with unstable angina pectoris (principal); J96.20 Acute and chronic respiratory failure, unspecified whether with hypoxia or hypercapnia; J44.1 Chronic obstructive pulmonary disease with (acute) exacerbation; E44.1 Mild protein-calorie malnutrition; I74.09 Other arterial embolism and thrombosis of abdominal aorta; I48.91 Unspecified atrial fibrillation; I16.0 Hypertensive urgency; D69.6 Thrombocytopenia, unspecified; E78.5 Hyperlipidemia, unspecified; I50.9 Heart failure, unspecified; E83.42 Hypomagnesemia; I11.0 Hypertensive heart disease with heart failure; I70.201 Unspecified atherosclerosis of native arteries of extremities, right leg; F17.210 Nicotine dependence, cigarettes, uncomplicated; Z20.822 Contact with and (suspected) exposure to COVID-19; Z68.30 Body mass index [BMI] 30.0-30.9, adult; Z99.81 Dependence on supplemental oxygen
CPT/HCPCS: 36415; 36573; 36600; 71045; 75635; 80048; 80053; 80305; 82375; 82550; 82553; 82805; 83735; 83880; 84100; 84484; 85025; 87426; 93005; 93306; 93454; 93923; 93970; 94640; 94644; 97162; 99285; C1725; C1760; C1769; C1887; C1893; C1894; J0360; J0456; J1200; J1644; J1650; J1940; J2250; J2270; J2920; J2930; J3010; J3475; J3490; J7512; J7626; Q9967

== ENCOUNTER 2022-01-26 17:51 | Inpatient (IN) | payer OTHER, MEDICAID ==
[~2022-01-26] VITALS: Ht 175.3 cm; Wt 66.4 kg
[~2022-01-26 17:51] MED LIST changes: +AMLO10TA80 PO; +FLUT1BLS12 IH; +HYDR-4001 MT; -HYDR-4009 MT; +IPRA3AMP9 NEB; -LISI20TA31 MT; +MED4 MT
[2022-01-26] MEDS ORDERED: ALBUTEROL (0.083%) 2.5MG/3ML NEB HHN STA (23:14)
[2022-01-26] MEDS ORDERED: METHYLPREDNISOLONE SOD SUCC 125 MG/2 ML VIAL IV STA (23:14)
[2022-01-26] MEDS ORDERED: IPRATROPIUM BROMIDE (0.02%) 0.5MG/2.5ML NEB HHN STA (23:14)
[2022-01-27] VITALS (7 sets, daily range): BP systolic 124–157; BP diastolic 58–85
[2022-01-27 00:29] LABS: BASOPHILS % 0.6 % (0.0-2.0); EOSINOPHILS % 2.8 % (0.0-5.0); HEMATOCRIT. 42.9 % (42.0-52.0); HEMOGLOBIN. 14.3 g/dL (14.0-18.0); LYMPHOCYTES % 48.4 % (20.0-50.0); MEAN CORPUSCULAR HEMOGLOBIN 29.2 pg (28.0-32.0); MEAN CORPUSCULAR VOLUME 87.6 fL (80.0-94.0); MEAN PLATELET VOLUME 8.1 fl (7.4-10.4); NEUTROPHILS % 38.2 % (40.0-76.0); PLATELET 151 x1000/uL (130-400); RED CELL DISTRIBUTION WIDTH 15.9 % (11.6-14.6)
[2022-01-27 00:35] LABS: CHLORIDE 102 mEq/L (98-107)
[2022-01-27] MEDS ORDERED: AZITHROMYCIN 500MG/250ML 250 ML IV NR (02:00)
[2022-01-27] MEDS ORDERED: CEFTRIAXONE 1 G PREMIX 50 ML IV NR (02:00)
[2022-01-27] MEDS ORDERED: IPRATROPIUM BROMIDE (0.02%) 0.5MG/2.5ML NEB HHN NR (02:00)
[2022-01-27] MEDS ORDERED: SODIUM CHLORIDE 0.9% 1,000 ML IV ONE (02:00)
[2022-01-27] MEDS ORDERED: METHYLPREDNISOLONE SOD SUCC 125 MG/2 ML VIAL IV NR (02:00)
[2022-01-27] MEDS ORDERED: ALBUTEROL (0.083%) 2.5MG/3ML NEB HHN NR (02:00)
[2022-01-27] MEDS ORDERED: HYDROCODONE/ACETAMINOPHEN 5/325MG TABLET PO ONE (02:45)
[2022-01-27] MEDS ORDERED: ACETAMINOPHEN 325MG TABLET PO PRN (09:30)
[2022-01-27] MEDS ORDERED: ONDANSETRON HCL 4MG/2ML INJ IV PRN (09:30)
[2022-01-27] MEDS ORDERED: DIPHENHYDRAMINE 50MG/ML VIAL IV PRN (09:30)
[2022-01-27] MEDS ORDERED: CLONIDINE 0.1MG TABLET PO PRN (09:30)
[2022-01-27] MEDS ORDERED: NALOXONE HCL 0.4MG/ML VIAL IV PRN (11:00)
[2022-01-27] MEDS: METHYLPREDNISOLONE SOD SUCC 125 MG/2 ML VIAL IV SCH ×2 (11:34→17:38)
[2022-01-27] MEDS: MORPHINE SULFATE 2 MG/ML CPJ (NOT FOR IM USE) IV PRN ×3 (11:35→22:24)
[2022-01-27] MEDS ORDERED: CLOPIDOGREL 75MG TABLET PO NR (13:30)
[2022-01-27] MEDS: ISOSORBIDE MONONITRATE 30MG TABLET SR 24HR PO SCH (14:39)
[2022-01-27 14:53] LABS: BG BASE EXCESS -1.3 mmol/L (-2.0-2.0); BG CARBOXYHEMOGLOBIN 0.1 % (0.5-1.5); BG DEOXYHEMOGLOBIN 5.1 % (0.0-5.0); BG FRACTION INSPIRED OXYGEN 28; BG OXYGEN SATURATION 94.9 % (92.0-98.5); BG OXYHEMOGLOBIN 94.8 % (94.0-97.0); BG PCO2 37.4 mmHg (35.0-45.0); BG PH 7.407 (7.350-7.450); BG PO2 76.5 mmHg (75.0-100.0); BG SAMPLE SITE RIGHT RADIAL; BG TOTAL HEMOGLOBIN 13.5 g/dL (12.0-18.0); BG VENT MODE NASAL CANNULA
[2022-01-27] MEDS: IPRATROPIUM/ALBUTEROL 0.5-3(2.5)MG/3ML NEB HHN PRN (18:13)
[2022-01-27] MEDS ORDERED: INFLUENZA VACCINE 05/PF 0.5 ML SYRINGE IM ONE (21:00)
[2022-01-28] VITALS: BP 122/59
[2022-01-28] MEDS: METHYLPREDNISOLONE SOD SUCC 125 MG/2 ML VIAL IV SCH ×4 (01:55→18:06)
[2022-01-28 04:00] VITALS: BP 127/60
[2022-01-28] MEDS: MORPHINE SULFATE 2 MG/ML CPJ (NOT FOR IM USE) IV PRN ×4 (04:16→21:47)
[2022-01-28 06:40] LABS: HEMATOCRIT. 35.9 % (42.0-52.0); HEMOGLOBIN. 12.1 g/dL (14.0-18.0); LYMPHOCYTES % 8.5 % (20.0-50.0); MEAN CORPUSCULAR HEMOGLOBIN 29.2 pg (28.0-32.0); MEAN CORPUSCULAR VOLUME 86.6 fL (80.0-94.0); MEAN PLATELET VOLUME 8.8 fl (7.4-10.4); MONOCYTES % 3.4 % (2.0-8.0); NEUTROPHILS % 88.1 % (40.0-76.0); PLATELET 160 x1000/uL (130-400); RED BLOOD CELL COUNT 4.14 mill/uL (4.7-6.1); RED CELL DISTRIBUTION WIDTH 15.6 % (11.6-14.6)
[2022-01-28 07:35] LABS: CHLORIDE 106 mEq/L (98-107)
[2022-01-28 08:00] VITALS: BP 135/60
[2022-01-28] MEDS: ISOSORBIDE MONONITRATE 30MG TABLET SR 24HR PO SCH (09:51)
[2022-01-28] MEDS: CLOPIDOGREL 75MG TABLET PO SCH (09:52)
[2022-01-28] MEDS: IPRATROPIUM/ALBUTEROL 0.5-3(2.5)MG/3ML NEB HHN PRN ×2 (11:10→16:20)
[2022-01-28 12:00] VITALS: BP 120/58
[2022-01-28 16:01] VITALS: BP 149/69
[2022-01-28 20:00] VITALS: BP 133/65
[2022-01-29] VITALS: BP 132/51
[2022-01-29] MEDS: METHYLPREDNISOLONE SOD SUCC 125 MG/2 ML VIAL IV SCH ×5 (01:22→23:23)
[2022-01-29] MEDS: MORPHINE SULFATE 2 MG/ML CPJ (NOT FOR IM USE) IV PRN ×3 (03:56→18:12)
[2022-01-29 04:00] VITALS: BP 150/74
[2022-01-29 08:00] VITALS: BP 145/69
[2022-01-29] MEDS: ISOSORBIDE MONONITRATE 30MG TABLET SR 24HR PO SCH (09:00)
[2022-01-29] MEDS: CLOPIDOGREL 75MG TABLET PO SCH (09:00)
[2022-01-29] MEDS ORDERED: LIDOCAINE HCL/PF 1% 10 MG/ML 5ML VIAL ONE ×2 (09:29→10:25)
[2022-01-29] MEDS ORDERED: VERAPAMIL HCL 2.5 MG/1 ML 2ML VIAL IV ONE (09:29)
[2022-01-29] MEDS ORDERED: DIPHENHYDRAMINE 50MG/ML VIAL ONE (09:29)
[2022-01-29] MEDS ORDERED: IODIXANOL 320MG/ML 100 ML BOTTLE IV ONE ×2 (09:32→11:30)
[2022-01-29] MEDS ORDERED: MIDAZOLAM HCL 2 MG/2 ML VIAL ONE ×2 (10:03→10:53)
[2022-01-29] MEDS ORDERED: FENTANYL CITRATE/PF 50MCG/ML 2ML VIAL ONE ×2 (10:03→11:17)
[2022-01-29] MEDS ORDERED: HEPARIN 1000 UNITS/ML 10ML ONE (11:07)
[2022-01-29] MEDS ORDERED: LABETALOL HCL 5MG/ML VIAL 20ML IV ONE (11:14)
[2022-01-29] MEDS ORDERED: NITROGLYCERIN 50MG PREMIX 250 ML IV ONE (11:17)
[2022-01-29] MEDS ORDERED: HYDRALAZINE 20MG/ML VIAL ONE (11:41)
[2022-01-29] MEDS ORDERED: CLOPIDOGREL 75MG TABLET ONE (11:45)
[2022-01-29] MEDS ORDERED: ASPIRIN 325MG TABLET ONE (11:45)
[2022-01-29 12:00] VITALS: BP 131/72
[2022-01-29] MEDS ORDERED: ATROPINE SULFATE 1MG/10ML SYR IV PRN (12:00)
[2022-01-29] MEDS: SODIUM CHLORIDE 0.45% 1,000 ML IV SCH ×2 (12:12→18:59)
[2022-01-29 16:00] VITALS: BP 141/71
[2022-01-29 20:22] VITALS: BP 146/63
[2022-01-30] VITALS: BP 140/74
[2022-01-30] MEDS: MORPHINE SULFATE 2 MG/ML CPJ (NOT FOR IM USE) IV PRN ×3 (00:23→11:22)
[2022-01-30 04:00] VITALS: BP 152/86
[2022-01-30] MEDS: SODIUM CHLORIDE 0.45% 1,000 ML IV SCH (05:24)
[2022-01-30] MEDS: METHYLPREDNISOLONE SOD SUCC 125 MG/2 ML VIAL IV SCH ×2 (06:03→11:16)
[2022-01-30 06:53] LABS: BASOPHILS % 0.1 % (0.0-2.0); HEMOGLOBIN. 11.8 g/dL (14.0-18.0); MEAN CORPUSCULAR HEMOGLOBIN 29.3 pg (28.0-32.0); MEAN CORPUSCULAR VOLUME 87.2 fL (80.0-94.0); MEAN PLATELET VOLUME 8.9 fl (7.4-10.4); MONOCYTES % 3.5 % (2.0-8.0); NEUTROPHILS % 88.4 % (40.0-76.0); PLATELET 173 x1000/uL (130-400); RED BLOOD CELL COUNT 4.02 mill/uL (4.7-6.1)
[2022-01-30 08:00] VITALS: BP 155/77
[2022-01-30] MEDS: ISOSORBIDE MONONITRATE 30MG TABLET SR 24HR PO SCH (08:04)
[2022-01-30] MEDS: CLOPIDOGREL 75MG TABLET PO SCH (08:04)
[2022-01-30 08:51] LABS: CHLORIDE 106 mEq/L (98-107)
[2022-01-30] MEDS ORDERED: ASPI-1406 MT (10:08)
[2022-01-30] MEDS ORDERED: MED4 MT (10:08)
[2022-01-30] MEDS ORDERED: FLUT1BLS12 IH (10:08)
[2022-01-30] MEDS ORDERED: ALBU18HF2 IH (10:08)
[2022-01-30] MEDS ORDERED: PANT40TA51 MT (10:08)
[2022-01-30] MEDS ORDERED: IPRA3AMP9 NEB (10:08)
[2022-01-30] MEDS ORDERED: CLOP75TA15 PO (10:08)
[2022-01-30] MEDS ORDERED: ISOS30TA91 PO (10:08)
[2022-01-30 10:19] VITALS: BP 159/83
[2022-01-30 12:00] VITALS: BP 149/80
== END 2022-01-30 17:31 | disposition home or self-care (01) | DRG 246 ==
LOC: ER 17:51 → 3WST 01-27 03:28 → EDBEDREQ 01-27 03:32 → ENRESERV 01-27 03:59 → ER 01-27 04:55
PROVIDERS: ADMIT Internal Medicine; ATTEND Internal Medicine
PROC: 027034Z Dilation of Coronary Artery, One Artery with Drug-eluting Intraluminal Device, Percutaneous Approach (ICD-10-PCS; principal; 2022-01-29)
PROC: 4A023N7 Measurement of Cardiac Sampling and Pressure, Left Heart, Percutaneous Approach (ICD-10-PCS; 2022-01-29)
PROC: B210YZZ Fluoroscopy of Single Coronary Artery using Other Contrast (ICD-10-PCS; 2022-01-29)
PROC: B41FYZZ Fluoroscopy of Right Lower Extremity Arteries using Other Contrast (ICD-10-PCS; 2022-01-29)
DX: I25.110 Atherosclerotic heart disease of native coronary artery with unstable angina pectoris (principal); J96.00 Acute respiratory failure, unspecified whether with hypoxia or hypercapnia; J44.1 Chronic obstructive pulmonary disease with (acute) exacerbation; I16.0 Hypertensive urgency; I73.9 Peripheral vascular disease, unspecified; Z20.822 Contact with and (suspected) exposure to COVID-19; I10 Essential (primary) hypertension; I48.91 Unspecified atrial fibrillation; F17.210 Nicotine dependence, cigarettes, uncomplicated; Z88.8 Allergy status to other drugs, medicaments and biological substances; Z79.899 Other long term (current) drug therapy; Z89.429 Acquired absence of other toe(s), unspecified side
CPT/HCPCS: 36415; 36600; 71045; 80048; 80053; 82375; 82805; 82962; 83605; 83880; 84484; 85025; 85347; 87426; 90686; 92928; 93005; 93454; 93970; 94640; 99291; C1725; C1760; C1769; C1874; C1887; C1893; C1894; J0360; J0456; J0696; J1200; J1644; J2250; J2270; J2930; J3010; J3490; Q9967

== ENCOUNTER 2022-02-27 17:00 | Inpatient (IN) | payer OTHER, MEDICAID ==
[~2022-02-27] VITALS: Ht 177.8 cm; Wt 75.3 kg
[~2022-02-27 17:00] MED LIST changes: +ALBU18HF2 IH; -AMLO10TA80 PO; +ASPI-1406 MT; +CLOP75TA15 PO; +ISOS30TA91 PO; +PANT40TA51 MT
[2022-02-27 18:15] LABS: BASOPHILS % 1.3 % (0.0-2.0); EOSINOPHILS % 1.7 % (0.0-5.0); HEMATOCRIT. 33.9 % (42.0-52.0); HEMOGLOBIN. 11.4 g/dL (14.0-18.0); LYMPHOCYTES % 61.2 % (20.0-50.0); MEAN CORPUSCULAR HEMOGLOBIN 29.7 pg (28.0-32.0); MEAN CORPUSCULAR VOLUME 88.3 fL (80.0-94.0); MEAN PLATELET VOLUME 8.5 fl (7.4-10.4); NEUTROPHILS % 25.8 % (40.0-76.0); PLATELET 158 x1000/uL (130-400); RED BLOOD CELL COUNT 3.84 mill/uL (4.7-6.1); RED CELL DISTRIBUTION WIDTH 16.8 % (11.6-14.6)
[2022-02-27] MEDS ORDERED: MORPHINE SULFATE 4 MG/ML CPJ (NOT FOR IM USE) IV ONE (18:15)
[2022-02-27] MEDS ORDERED: CLOPIDOGREL 75MG TABLET PO ONE (18:15)
[2022-02-27 18:25] LABS: CHLORIDE 104 mEq/L (98-107)
[2022-02-27] MEDS ORDERED: NITROGLYCERIN 50MG PREMIX 250 ML IV ONE (18:30)
[2022-02-27] MEDS ORDERED: NITROGLYCERIN 0.4MG TABLET SL SL ONE (18:30)
[2022-02-27] MEDS ORDERED: NITROGLYCERIN 50MG PREMIX 250 ML IV NR (18:45)
[2022-02-27] MEDS ORDERED: IOHEXOL-350 100 ML BOTTLE ONE ×2 (19:31→21:49)
[2022-02-27] MEDS ORDERED: IPRATROPIUM BROMIDE (0.02%) 0.5MG/2.5ML NEB HHN STA (19:35)
[2022-02-27] MEDS ORDERED: METHYLPREDNISOLONE SOD SUCC 125 MG/2 ML VIAL IV STA (19:35)
[2022-02-27] MEDS ORDERED: NITROGLYCERIN OINT 1GM/INCH UDPKT TD ONE (19:45)
[2022-02-27] MEDS ORDERED: SODIUM CHLORIDE 0.9% 1,000 ML IV ONE (19:45)
[2022-02-27] MEDS: ALBUTEROL (0.083%) 2.5MG/3ML NEB HHN SCH ×3 (20:49→21:20)
[2022-02-27] MEDS: MORPHINE SULFATE 2 MG/ML CPJ (NOT FOR IM USE) IV PRN (22:42)
[2022-02-27] MEDS ORDERED: NALOXONE HCL 0.4MG/ML VIAL IV PRN (22:45)
[2022-02-28] MEDS ORDERED: METHYLPREDNISOLONE SOD SUCC 125 MG/2 ML VIAL IV STA (00:21)
[2022-02-28] MEDS ORDERED: IPRATROPIUM BROMIDE (0.02%) 0.5MG/2.5ML NEB HHN STA (00:21)
[2022-02-28] MEDS ORDERED: MAGNESIUM 2 G PREMIX 50 ML IV ONE (00:30)
[2022-02-28] MEDS: ALBUTEROL (0.083%) 2.5MG/3ML NEB HHN SCH ×4 (00:30→00:53)
[2022-02-28] MEDS: MORPHINE SULFATE 2 MG/ML CPJ (NOT FOR IM USE) IV PRN ×3 (03:48→13:44)
[2022-02-28] MEDS ORDERED: ASPIRIN 81MG TABLET PO SCH (09:00)
[2022-02-28] MEDS: CLOPIDOGREL 75MG TABLET PO SCH (10:05)
[2022-02-28] MEDS: ASPIRIN 81MG TABLET PO SCH (10:05)
[2022-02-28] MEDS ORDERED: HYDRALAZINE 20MG/ML VIAL IV NR (16:00)
[2022-02-28] MEDS ORDERED: FUROSEMIDE 20MG/2ML VIAL IVP NR (16:00)
[2022-02-28] MEDS: NIFEDIPINE XL 30MG TAB PO SCH (17:08)
[2022-02-28] MEDS: IPRATROPIUM BROMIDE (0.02%) 0.5MG/2.5ML NEB HHN SCH (17:09)
[2022-02-28] MEDS: NITROGLYCERIN OINT 1GM/INCH UDPKT TD SCH (18:23)
[2022-02-28] MEDS: METHYLPREDNISOLONE SOD SUCC 40 MG/ML VIAL IV SCH (18:24)
[2022-02-28] MEDS: HYDROCODONE/ACETAMINOPHEN 10/325MG TABLET PO PRN (18:43)
[2022-02-28] MEDS: FAMOTIDINE 20MG TABLET PO SCH (21:17)
[2022-03-01] MEDS: IPRATROPIUM BROMIDE (0.02%) 0.5MG/2.5ML NEB HHN SCH ×7 (00:45→20:45)
[2022-03-01] MEDS: HYDROCODONE/ACETAMINOPHEN 10/325MG TABLET PO PRN ×3 (00:55→20:21)
[2022-03-01] MEDS: METHYLPREDNISOLONE SOD SUCC 40 MG/ML VIAL IV SCH ×3 (01:07→18:11)
[2022-03-01] MEDS: NITROGLYCERIN OINT 1GM/INCH UDPKT TD SCH ×3 (08:07→21:58)
[2022-03-01] MEDS: CLOPIDOGREL 75MG TABLET PO SCH (08:40)
[2022-03-01] MEDS: NIFEDIPINE XL 30MG TAB PO SCH (08:41)
[2022-03-01] MEDS: ASPIRIN 81MG TABLET PO SCH (08:50)
[2022-03-01 10:00] VITALS: BP 133/67
[2022-03-01] MEDS ORDERED: KETOROLAC 30MG/ML VIAL IV SCH (11:30)
[2022-03-01 12:00] VITALS: BP 140/68
[2022-03-01] MEDS: FUROSEMIDE 20MG/2ML VIAL IVP SCH (14:09)
[2022-03-01] MEDS ORDERED: MORPHINE SULFATE 2 MG/ML CPJ (NOT FOR IM USE) IV NR (15:45)
[2022-03-01 16:00] VITALS: BP_SYST 148; BP_SYST 150; BP_DIAS 69; BP_DIAS 80
[2022-03-01 16:29] LABS: BASOPHILS % 0.1 % (0.0-2.0); HEMATOCRIT. 38.9 % (42.0-52.0); LYMPHOCYTES % 7.8 % (20.0-50.0); MEAN CORPUSCULAR HEMOGLOBIN 30.1 pg (28.0-32.0); MEAN CORPUSCULAR VOLUME 90.1 fL (80.0-94.0); MEAN PLATELET VOLUME 8.8 fl (7.4-10.4); MONOCYTES % 4.7 % (2.0-8.0); NEUTROPHILS % 87.4 % (40.0-76.0); PLATELET 168 x1000/uL (130-400); RED BLOOD CELL COUNT 4.32 mill/uL (4.7-6.1); RED CELL DISTRIBUTION WIDTH 16.6 % (11.6-14.6)
[2022-03-01 16:53] LABS: CHLORIDE 99 mEq/L (98-107)
[2022-03-01 20:00] VITALS: BP 116/50
[2022-03-01] MEDS: FAMOTIDINE 20MG TABLET PO SCH (20:21)
[2022-03-02] VITALS: BP 143/68
[2022-03-02] MEDS: IPRATROPIUM BROMIDE (0.02%) 0.5MG/2.5ML NEB HHN SCH ×5 (00:10→15:52)
[2022-03-02] MEDS: METHYLPREDNISOLONE SOD SUCC 40 MG/ML VIAL IV SCH ×3 (01:46→18:52)
[2022-03-02 04:00] VITALS: BP 134/70
[2022-03-02] MEDS: NITROGLYCERIN OINT 1GM/INCH UDPKT TD SCH ×2 (06:12→13:13)
[2022-03-02 08:00] VITALS: BP 157/94
[2022-03-02] MEDS ORDERED: ENOXAPARIN 40MG/0.4ML SYR SUBCUT SCH (09:00)
[2022-03-02] MEDS: NIFEDIPINE XL 30MG TAB PO SCH (09:32)
[2022-03-02] MEDS: HYDROCODONE/ACETAMINOPHEN 10/325MG TABLET PO PRN ×3 (09:32→16:08)
[2022-03-02] MEDS: CLOPIDOGREL 75MG TABLET PO SCH (09:32)
[2022-03-02] MEDS: ASPIRIN 81MG TABLET PO SCH ×2 (09:33→09:34)
[2022-03-02] MEDS: FUROSEMIDE 20MG/2ML VIAL IVP SCH (09:37)
[2022-03-02] MEDS ORDERED: P20 MT (11:08)
[2022-03-02] MEDS ORDERED: FURO-152 MT (11:08)
[2022-03-02 12:00] VITALS: BP 142/72
[2022-03-02] MEDS ORDERED: HYDR-4009 MT (12:03)
[2022-03-02] MEDS ORDERED: IPRA3AMP9 NEB (12:34)
[2022-03-02 16:00] VITALS: BP 119/69
[2022-03-02 18:49] VITALS: BP 150/69
== END 2022-03-02 19:55 | disposition home or self-care (01) | DRG 291 ==
LOC: ER 17:00 → MICUSO 21:24 → EDBEDREQTM 21:31 → EDBEDREQ 21:31 → EDBEDREQSVC 02-28 14:44 → 7EST 03-01 08:46
PROVIDERS: ADMIT Internal Medicine; ATTEND Internal Medicine
DX: I11.0 Hypertensive heart disease with heart failure (principal); I50.31 Acute diastolic (congestive) heart failure; J96.01 Acute respiratory failure with hypoxia; J44.1 Chronic obstructive pulmonary disease with (acute) exacerbation; E44.0 Moderate protein-calorie malnutrition; E87.6 Hypokalemia; Z20.822 Contact with and (suspected) exposure to COVID-19; I25.10 Atherosclerotic heart disease of native coronary artery without angina pectoris; I73.9 Peripheral vascular disease, unspecified; Z88.8 Allergy status to other drugs, medicaments and biological substances; Z79.899 Other long term (current) drug therapy; Z68.23 Body mass index [BMI] 23.0-23.9, adult; Z88.6 Allergy status to analgesic agent; Z95.5 Presence of coronary angioplasty implant and graft; Z87.891 Personal history of nicotine dependence
CPT/HCPCS: 36415; 71045; 71275; 74174; 76604; 80048; 80053; 83605; 83880; 84484; 85025; 87426; 93005; 93306; 94640; 99285; C9803; J0360; J1650; J1885; J1940; J2270; J2920; J2930; J3475; J3490; J7030; Q9967

== ENCOUNTER 2022-03-14 17:54 | Inpatient (IN) | payer BC, MEDICAID ==
[~2022-03-14] VITALS: Ht 177.8 cm; Wt 68.6 kg
[~2022-03-14 17:54] MED LIST changes: +FURO-152 MT; -HYDR-4001 MT; +HYDR-4009 MT; -MED4 MT; +P20 MT
[2022-03-14 18:32] LABS: BASOPHILS % 1.3 % (0.0-2.0); EOSINOPHILS % 0.8 % (0.0-5.0); HEMATOCRIT. 38.4 % (42.0-52.0); LYMPHOCYTES % 28.8 % (20.0-50.0); MEAN CORPUSCULAR HEMOGLOBIN 30.4 pg (28.0-32.0); MEAN CORPUSCULAR VOLUME 89.8 fL (80.0-94.0); MEAN PLATELET VOLUME 8.6 fl (7.4-10.4); NEUTROPHILS % 58.1 % (40.0-76.0); PLATELET 158 x1000/uL (130-400); RED BLOOD CELL COUNT 4.27 mill/uL (4.7-6.1)
[2022-03-14 18:39] LABS: CHLORIDE 102 mEq/L (98-107)
[2022-03-14] MEDS ORDERED: MORPHINE SULFATE 4 MG/ML CPJ (NOT FOR IM USE) IV ONE (19:45)
[2022-03-14] MEDS ORDERED: DOCUSATE SODIUM 100MG CAPSULE PO PRN (21:30)
[2022-03-14] MEDS ORDERED: MAGNESIUM/ALUMINUM HYDROXIDE/SIMETHICONE 30ML UDC PO PRN (21:30)
[2022-03-14] MEDS ORDERED: ONDANSETRON HCL 4MG/2ML INJ IV PRN (21:30)
[2022-03-14] MEDS ORDERED: CLONIDINE 0.1MG TABLET PO PRN (21:30)
[2022-03-14] MEDS ORDERED: NITROGLYCERIN 0.4MG TABLET SL SL PRN (21:30)
[2022-03-14] MEDS ORDERED: ACETAMINOPHEN 325MG TABLET PO PRN (21:30)
[2022-03-14 23:20] LABS: CREATINE KINASE MB FRACTION 2.2 ng/mL (0.5-3.6)
[2022-03-14 23:22] LABS: T4 FREE 1.09 ng/dL (0.76-1.46)
[2022-03-14 23:49] LABS: FOLIC ACID (FOLATE) SERUM 10.8 ng/mL (>5.38)
[2022-03-15] MEDS: KETOROLAC 15MG/ML VIAL IV PRN ×3 (02:37→21:06)
[2022-03-15] MEDS: IPRATROPIUM/ALBUTEROL 0.5-3(2.5)MG/3ML NEB NEB PRN ×2 (02:50→07:20)
[2022-03-15] MEDS: ZOLPIDEM TARTRATE 5MG TABLET PO PRN ×2 (04:01→21:12)
[2022-03-15 05:10] LABS: BASOPHILS % 0.5 % (0.0-2.0); EOSINOPHILS % 0.9 % (0.0-5.0); HEMATOCRIT. 34.2 % (42.0-52.0); HEMOGLOBIN. 11.7 g/dL (14.0-18.0); LYMPHOCYTES % 22.3 % (20.0-50.0); MEAN CORPUSCULAR HEMOGLOBIN 30.4 pg (28.0-32.0); MEAN CORPUSCULAR VOLUME 88.9 fL (80.0-94.0); MEAN PLATELET VOLUME 8.7 fl (7.4-10.4); MONOCYTES % 11.1 % (2.0-8.0); NEUTROPHILS % 65.2 % (40.0-76.0); PLATELET 126 x1000/uL (130-400); RED BLOOD CELL COUNT 3.85 mill/uL (4.7-6.1); RED CELL DISTRIBUTION WIDTH 16.4 % (11.6-14.6)
[2022-03-15 05:11] LABS: CHLORIDE 102 mEq/L (98-107)
[2022-03-15 05:20] LABS: PHOSPHORUS 3.4 mg/dL (2.5-4.9)
[2022-03-15] MEDS ORDERED: IPRATROPIUM/ALBUTEROL 0.5-3(2.5)MG/3ML NEB HHN SCH (06:00)
[2022-03-15] MEDS: METHYLPREDNISOLONE SOD SUCC 125 MG/2 ML VIAL IV SCH ×3 (06:34→21:03)
[2022-03-15 06:44] LABS: CREATINE KINASE MB FRACTION 1.9 ng/mL (0.5-3.6)
[2022-03-15] MEDS ORDERED: LIDOCAINE HCL/PF 1% 2ML VIAL ONE (08:00)
[2022-03-15] MEDS ORDERED: ASPIRIN 81MG EC TABLET PO SCH (09:00)
[2022-03-15] MEDS: AZITHROMYCIN 250 MG in DEXT 5% WATER 250 ML IV SCH (09:30)
[2022-03-15] MEDS: FAMOTIDINE 20MG TABLET PO SCH ×2 (09:43→21:02)
[2022-03-15] MEDS: CLOPIDOGREL 75MG TABLET PO SCH (09:43)
[2022-03-15] MEDS: ISOSORBIDE MONONITRATE 30MG TABLET SR 24HR PO SCH (09:43)
[2022-03-15 10:14] LABS: BG BASE EXCESS 0.2 mmol/L (-2.0-2.0); BG CARBOXYHEMOGLOBIN 0.6 % (0.5-1.5); BG DEOXYHEMOGLOBIN 3.6 % (0.0-5.0); BG FRACTION INSPIRED OXYGEN 28; BG HCO3 ACT 24.6 mmol/L (22.0-26.0); BG METHEMOGLOBIN 0.9 % (0.0-1.5); BG OXYGEN SATURATION 96.3 % (92.0-98.5); BG OXYHEMOGLOBIN 94.9 % (94.0-97.0); BG PCO2 39.1 mmHg (35.0-45.0); BG PH 7.417 (7.350-7.450); BG PO2 84.5 mmHg (75.0-100.0); BG SAMPLE SITE LEFT RADIAL; BG TOTAL HEMOGLOBIN 13.7 g/dL (12.0-18.0); BG VENT MODE NASAL CANNULA
[2022-03-15 12:37] VITALS: BP 127/70
[2022-03-15 12:56] VITALS: BP 127/70
[2022-03-15] MEDS: FUROSEMIDE 20MG/2ML VIAL IVP SCH (15:30)
[2022-03-15] MEDS ORDERED: ALBUTEROL (0.083%) 2.5MG/3ML NEB HHN PRN (15:45)
[2022-03-15] MEDS ORDERED: IPRATROPIUM BROMIDE (0.02%) 0.5MG/2.5ML NEB HHN PRN (15:45)
[2022-03-15 16:00] VITALS: BP 118/66
[2022-03-15] MEDS: ALBUTEROL (0.083%) 2.5MG/3ML NEB HHN SCH ×2 (17:00→20:28)
[2022-03-15] MEDS: IPRATROPIUM BROMIDE (0.02%) 0.5MG/2.5ML NEB HHN SCH ×2 (17:01→20:27)
[2022-03-15] MEDS: ACETAMINOPHEN 325MG TABLET PO PRN (17:33)
[2022-03-15 20:00] VITALS: BP 130/83
[2022-03-15] MEDS: GUAIFENESIN 600MG ER TABLET PO SCH (21:03)
[2022-03-15] MEDS: ENOXAPARIN 40MG/0.4ML SYR SUBCUT SCH (21:07)
[2022-03-16] VITALS: BP 116/77
[2022-03-16 04:00] VITALS: BP 138/75
[2022-03-16] MEDS: ALBUTEROL (0.083%) 2.5MG/3ML NEB HHN SCH ×4 (04:27→21:35)
[2022-03-16] MEDS: IPRATROPIUM BROMIDE (0.02%) 0.5MG/2.5ML NEB HHN SCH ×4 (04:27→21:35)
[2022-03-16] MEDS: KETOROLAC 15MG/ML VIAL IV PRN ×3 (04:45→19:55)
[2022-03-16 05:39] LABS: HEMOGLOBIN. 12.3 g/dL (14.0-18.0); MEAN CORPUSCULAR VOLUME 90.8 fL (80.0-94.0); MEAN PLATELET VOLUME 9.9 fl (7.4-10.4); PLATELET 62 x1000/uL (130-400); RED BLOOD CELL COUNT 4.08 mill/uL (4.7-6.1); RED CELL DISTRIBUTION WIDTH 16.2 % (11.6-14.6)
[2022-03-16 05:55] LABS: CHLORIDE 101 mEq/L (98-107)
[2022-03-16 05:59] LABS: PHOSPHORUS 3.6 mg/dL (2.5-4.9)
[2022-03-16] MEDS: METHYLPREDNISOLONE SOD SUCC 125 MG/2 ML VIAL IV SCH ×3 (06:12→21:16)
[2022-03-16 08:00] VITALS: BP 148/98
[2022-03-16] MEDS: AZITHROMYCIN 250 MG in DEXT 5% WATER 250 ML IV SCH (08:59)
[2022-03-16] MEDS: FUROSEMIDE 20MG/2ML VIAL IVP SCH (09:00)
[2022-03-16] MEDS: CLOPIDOGREL 75MG TABLET PO SCH (09:03)
[2022-03-16] MEDS: ISOSORBIDE MONONITRATE 30MG TABLET SR 24HR PO SCH (09:03)
[2022-03-16] MEDS: GUAIFENESIN 600MG ER TABLET PO SCH ×2 (09:03→21:15)
[2022-03-16] MEDS: FAMOTIDINE 20MG TABLET PO SCH ×2 (09:03→21:15)
[2022-03-16] MEDS: ACETAMINOPHEN 325MG TABLET PO PRN (09:03)
[2022-03-16 12:00] VITALS: BP 109/45
[2022-03-16 12:30] LABS: *AMPHETAMINES SCREEN URINE NEGATIVE (NEGATIVE); *BARBITURATES SCREEN URINE NEGATIVE (NEGATIVE); *BENZODIAZEPINES SCREEN URINE NEGATIVE (NEGATIVE); *COCAINE SCREEN URINE NEGATIVE (NEGATIVE); CANNABINOID URINE SCREEN NEGATIVE (NEGATIVE); METHADONE URINE SCREEN NEGATIVE (NEGATIVE); OPIATES URINE SCREEN PRESUMTIVE POSITIVE (NEGATIVE); PHENCYCLIDINE URINE SCREEN NEGATIVE (NEGATIVE)
[2022-03-16 16:00] VITALS: BP 118/66
[2022-03-16 20:00] VITALS: BP 128/65
[2022-03-16] MEDS: ZOLPIDEM TARTRATE 5MG TABLET PO PRN (21:15)
[2022-03-16] MEDS: ENOXAPARIN 40MG/0.4ML SYR SUBCUT SCH (21:21)
[2022-03-17] VITALS: BP 123/69
[2022-03-17] MEDS: IPRATROPIUM BROMIDE (0.02%) 0.5MG/2.5ML NEB HHN SCH ×3 (01:05→20:00)
[2022-03-17] MEDS: ALBUTEROL (0.083%) 2.5MG/3ML NEB HHN SCH ×4 (01:06→20:00)
[2022-03-17] MEDS: KETOROLAC 15MG/ML VIAL IV PRN ×4 (03:52→22:41)
[2022-03-17 04:00] VITALS: BP 143/65
[2022-03-17] MEDS: METHYLPREDNISOLONE SOD SUCC 125 MG/2 ML VIAL IV SCH ×2 (05:59→13:14)
[2022-03-17 08:00] VITALS: BP 134/73
[2022-03-17] MEDS: GUAIFENESIN 200MG/10ML SUGAR FREE UDC PO PRN ×3 (09:10→22:38)
[2022-03-17] MEDS: FUROSEMIDE 20MG/2ML VIAL IVP SCH (09:10)
[2022-03-17] MEDS: GUAIFENESIN 600MG ER TABLET PO SCH ×2 (09:11→21:15)
[2022-03-17] MEDS: ISOSORBIDE MONONITRATE 30MG TABLET SR 24HR PO SCH (09:11)
[2022-03-17] MEDS: CLOPIDOGREL 75MG TABLET PO SCH (09:11)
[2022-03-17] MEDS: FAMOTIDINE 20MG TABLET PO SCH ×2 (09:11→21:15)
[2022-03-17] MEDS: AZITHROMYCIN 250 MG in DEXT 5% WATER 250 ML IV SCH (09:11)
[2022-03-17 12:00] VITALS: BP 130/69
[2022-03-17 12:03] LABS: HEMATOCRIT. 35.8 % (42.0-52.0); MEAN CORPUSCULAR HEMOGLOBIN 29.9 pg (28.0-32.0); MEAN CORPUSCULAR VOLUME 89.5 fL (80.0-94.0); MEAN PLATELET VOLUME 9.4 fl (7.4-10.4); PLATELET 124 x1000/uL (130-400); RED CELL DISTRIBUTION WIDTH 16.2 % (11.6-14.6)
[2022-03-17 12:21] LABS: CHLORIDE 102 mEq/L (98-107)
[2022-03-17 12:28] LABS: PHOSPHORUS 3.4 mg/dL (2.5-4.9)
[2022-03-17] MEDS: ACETAMINOPHEN 325MG TABLET PO PRN (13:17)
[2022-03-17 15:13] LABS: PLATELET ESTIMATE DECREASED
[2022-03-17 16:00] VITALS: BP 141/73
[2022-03-17 20:00] VITALS: BP 111/60
[2022-03-17] MEDS: METHYLPREDNISOLONE SOD SUCC 40 MG/ML VIAL IV SCH (21:16)
[2022-03-17] MEDS: ENOXAPARIN 40MG/0.4ML SYR SUBCUT SCH (21:16)
[2022-03-17] MEDS: ZOLPIDEM TARTRATE 5MG TABLET PO PRN (22:38)
[2022-03-18] VITALS (8 sets, daily range): BP systolic 97–165; BP diastolic 52–83
[2022-03-18] MEDS: ALBUTEROL (0.083%) 2.5MG/3ML NEB HHN SCH ×4 (02:10→20:34)
[2022-03-18] MEDS: IPRATROPIUM BROMIDE (0.02%) 0.5MG/2.5ML NEB HHN SCH ×4 (02:10→20:33)
[2022-03-18] MEDS: ACETAMINOPHEN 325MG TABLET PO PRN ×2 (05:54→12:45)
[2022-03-18] MEDS: GUAIFENESIN 600MG ER TABLET PO SCH ×2 (08:47→21:27)
[2022-03-18] MEDS: FAMOTIDINE 20MG TABLET PO SCH ×2 (08:47→21:27)
[2022-03-18] MEDS: CLOPIDOGREL 75MG TABLET PO SCH (08:47)
[2022-03-18] MEDS: METHYLPREDNISOLONE SOD SUCC 40 MG/ML VIAL IV SCH ×2 (08:47→21:26)
[2022-03-18] MEDS: ISOSORBIDE MONONITRATE 30MG TABLET SR 24HR PO SCH (08:49)
[2022-03-18] MEDS: FUROSEMIDE 20MG/2ML VIAL IVP SCH (08:51)
[2022-03-18] MEDS: AZITHROMYCIN 250 MG in DEXT 5% WATER 250 ML IV SCH (08:51)
[2022-03-18] MEDS: CILOSTAZOL 50 MG TABLET PO SCH ×2 (09:24→21:27)
[2022-03-18] MEDS: KETOROLAC 15MG/ML VIAL IV PRN ×3 (09:24→21:28)
[2022-03-18 09:54] LABS: BASOPHILS % 0.1 % (0.0-2.0); HEMATOCRIT. 38.3 % (42.0-52.0); HEMOGLOBIN. 12.8 g/dL (14.0-18.0); LYMPHOCYTES % 13.4 % (20.0-50.0); MEAN CORPUSCULAR HEMOGLOBIN 30.2 pg (28.0-32.0); MEAN CORPUSCULAR VOLUME 90.5 fL (80.0-94.0); MEAN PLATELET VOLUME 9.3 fl (7.4-10.4); MONOCYTES % 3.4 % (2.0-8.0); NEUTROPHILS % 83.1 % (40.0-76.0); PLATELET 116 x1000/uL (130-400); RED BLOOD CELL COUNT 4.24 mill/uL (4.7-6.1); RED CELL DISTRIBUTION WIDTH 16.4 % (11.6-14.6)
[2022-03-18 10:07] LABS: CHLORIDE 101 mEq/L (98-107)
[2022-03-18 16:30] LABS: PLATELET ESTIMATE SLIGHTLY DECREASED
[2022-03-18] MEDS: ZOLPIDEM TARTRATE 5MG TABLET PO PRN (21:27)
[2022-03-18] MEDS: ENOXAPARIN 40MG/0.4ML SYR SUBCUT SCH (21:27)
[2022-03-19] VITALS (12 sets, daily range): BP systolic 102–161; BP diastolic 40–81
[2022-03-19] MEDS: IPRATROPIUM BROMIDE (0.02%) 0.5MG/2.5ML NEB HHN SCH ×4 (01:02→21:35)
[2022-03-19] MEDS: ALBUTEROL (0.083%) 2.5MG/3ML NEB HHN SCH ×4 (01:02→21:35)
[2022-03-19] MEDS: GUAIFENESIN 200MG/10ML SUGAR FREE UDC PO PRN ×2 (04:14→10:23)
[2022-03-19] MEDS: KETOROLAC 15MG/ML VIAL IV PRN ×4 (04:39→22:07)
[2022-03-19] MEDS: FAMOTIDINE 20MG TABLET PO SCH ×2 (08:56→20:42)
[2022-03-19] MEDS: AZITHROMYCIN 250 MG TABLET PO SCH (08:56)
[2022-03-19] MEDS: GUAIFENESIN 600MG ER TABLET PO SCH ×2 (08:56→20:42)
[2022-03-19] MEDS: CILOSTAZOL 50 MG TABLET PO SCH ×2 (08:56→20:42)
[2022-03-19] MEDS: METHYLPREDNISOLONE SOD SUCC 40 MG/ML VIAL IV SCH (08:57)
[2022-03-19] MEDS: CLOPIDOGREL 75MG TABLET PO SCH (08:57)
[2022-03-19] MEDS: ISOSORBIDE MONONITRATE 30MG TABLET SR 24HR PO SCH (08:57)
[2022-03-19] MEDS: FUROSEMIDE 20MG/2ML VIAL IVP SCH (08:58)
[2022-03-19] MEDS ORDERED: AZITHROMYCIN 500 MG TABLET PO SCH (09:00)
[2022-03-19] MEDS ORDERED: HEPARIN 1000 UNITS/ML 10ML ONE (11:59)
[2022-03-19] MEDS ORDERED: IODIXANOL 320MG/ML 100 ML BOTTLE IV ONE ×2 (11:59→13:15)
[2022-03-19] MEDS ORDERED: MIDAZOLAM HCL 2 MG/2 ML VIAL ONE ×2 (12:18→13:27)
[2022-03-19] MEDS ORDERED: FENTANYL CITRATE/PF 50MCG/ML 2ML VIAL ONE ×2 (12:18→13:27)
[2022-03-19] MEDS ORDERED: LIDOCAINE HCL 1% 50ML VIAL (10MG/ML) ONE (12:20)
[2022-03-19] MEDS ORDERED: SODIUM CHLORIDE 0.9% 500 ML IV SCH ×2 (17:03→17:15)
[2022-03-19 18:20] LABS: HEMATOCRIT 32.3 % (42.0-52.0); HEMOGLOBIN 11.1 g/dL (14.0-18.0)
[2022-03-19] MEDS: RIVAROXABAN 2.5 MG TABLET PO SCH (18:23)
[2022-03-19] MEDS: ZOLPIDEM TARTRATE 5MG TABLET PO PRN (22:05)
[2022-03-20] MEDS: ALBUTEROL (0.083%) 2.5MG/3ML NEB HHN SCH ×3 (01:21→13:23)
[2022-03-20] MEDS: IPRATROPIUM BROMIDE (0.02%) 0.5MG/2.5ML NEB HHN SCH ×3 (01:21→13:23)
[2022-03-20 03:32] VITALS: BP 113/55
[2022-03-20] MEDS: KETOROLAC 15MG/ML VIAL IV PRN (04:50)
[2022-03-20] MEDS: RIVAROXABAN 2.5 MG TABLET PO SCH (06:15)
[2022-03-20 08:00] VITALS: BP 115/59
[2022-03-20] MEDS ORDERED: LIDOCAINE HCL 1% 10 MG/ML 10ML VIAL ONE (08:09)
[2022-03-20] MEDS: FUROSEMIDE 20MG/2ML VIAL IVP SCH (09:00)
[2022-03-20] MEDS ORDERED: PREDNISONE 20MG TABLET PO SCH (09:00)
[2022-03-20] MEDS: AZITHROMYCIN 250 MG TABLET PO SCH (09:33)
[2022-03-20] MEDS: CLOPIDOGREL 75MG TABLET PO SCH (09:33)
[2022-03-20] MEDS: ISOSORBIDE MONONITRATE 30MG TABLET SR 24HR PO SCH (09:33)
[2022-03-20] MEDS: CILOSTAZOL 50 MG TABLET PO SCH (09:33)
[2022-03-20] MEDS: FAMOTIDINE 20MG TABLET PO SCH (09:34)
[2022-03-20] MEDS: GUAIFENESIN 600MG ER TABLET PO SCH (09:34)
[2022-03-20] MEDS: GUAIFENESIN 200MG/10ML SUGAR FREE UDC PO PRN (09:45)
[2022-03-20] MEDS ORDERED: IOHEXOL-350 100 ML BOTTLE ONE (10:47)
[2022-03-20 12:19] VITALS: BP 115/67
[2022-03-20] MEDS ORDERED: KETOROLAC 15MG/ML VIAL IV SCH (12:30)
[2022-03-20 12:43] VITALS: BP 115/67
== END 2022-03-20 17:55 | disposition home or self-care (01) | DRG 270 ==
LOC: ER 17:54 → MICUSO 20:12 → EDBEDREQ 20:20 → EDBEDREQTM 20:20 → SUPCPDRO 21:21 → 3WST 03-15 13:00
PROVIDERS: ADMIT Internal Medicine; ATTEND Internal Medicine
PROC: 5A09357 Assistance with Respiratory Ventilation, Less than 24 Consecutive Hours, Continuous Positive Airway Pressure (ICD-10-PCS; principal; 2022-03-14)
PROC: 04CK3ZZ Extirpation of Matter from Right Femoral Artery, Percutaneous Approach (ICD-10-PCS; 2022-03-19)
PROC: 04CM3ZZ Extirpation of Matter from Right Popliteal Artery, Percutaneous Approach (ICD-10-PCS; 2022-03-19)
PROC: 047K3ZZ Dilation of Right Femoral Artery, Percutaneous Approach (ICD-10-PCS; 2022-03-19)
PROC: 047M3ZZ Dilation of Right Popliteal Artery, Percutaneous Approach (ICD-10-PCS; 2022-03-19)
PROC: B41F1ZZ Fluoroscopy of Right Lower Extremity Arteries using Low Osmolar Contrast (ICD-10-PCS; 2022-03-19)
PROC: B41G1ZZ Fluoroscopy of Left Lower Extremity Arteries using Low Osmolar Contrast (ICD-10-PCS; 2022-03-19)
PROC: 02HV33Z Insertion of Infusion Device into Superior Vena Cava, Percutaneous Approach (ICD-10-PCS; 2022-03-20)
PROC: B5181ZA Fluoroscopy of Superior Vena Cava using Low Osmolar Contrast, Guidance (ICD-10-PCS; 2022-03-20)
PROC: B548ZZA Ultrasonography of Superior Vena Cava, Guidance (ICD-10-PCS; 2022-03-20)
DX: I70.201 Unspecified atherosclerosis of native arteries of extremities, right leg (principal); I50.33 Acute on chronic diastolic (congestive) heart failure; J96.21 Acute and chronic respiratory failure with hypoxia; J44.1 Chronic obstructive pulmonary disease with (acute) exacerbation; E44.0 Moderate protein-calorie malnutrition; I25.110 Atherosclerotic heart disease of native coronary artery with unstable angina pectoris; Z20.822 Contact with and (suspected) exposure to COVID-19; I11.0 Hypertensive heart disease with heart failure; F17.210 Nicotine dependence, cigarettes, uncomplicated; Z88.8 Allergy status to other drugs, medicaments and biological substances; Z79.899 Other long term (current) drug therapy; Z79.02 Long term (current) use of antithrombotics/antiplatelets; Z88.6 Allergy status to analgesic agent; Z95.5 Presence of coronary angioplasty implant and graft; Z68.21 Body mass index [BMI] 21.0-21.9, adult; Z99.81 Dependence on supplemental oxygen
CPT/HCPCS: 36415; 36573; 36600; 37225; 71045; 72191; 73706; 75710; 80048; 80053; 80061; 80305; 82375; 82550; 82553; 82607; 82746; 82805; 83036; 83540; 83550; 83735; 83880; 84100; 84145; 84439; 84443; 84484; 85014; 85018; 85025; 85347; 87426; 93005; 93922; 93970; 93971; 94640; 99291; C1725; C1760; C1769; C1885; C1887; C1893; C1894; J0456; J1644; J1650; J1885; J1940; J2250; J2270; J2920; J2930; J3010; J3490; J7060; J7512; Q9967

== ENCOUNTER 2022-03-26 16:51 | Inpatient (IN) | payer BC, MEDICAID ==
[~2022-03-26] VITALS: Ht 175.3 cm; Wt 68.9 kg
[2022-03-26] MEDS ORDERED: METHYLPREDNISOLONE SOD SUCC 125 MG/2 ML VIAL IV STA (17:14)
[2022-03-26] MEDS ORDERED: ALBUTEROL (0.083%) 2.5MG/3ML NEB HHN STA (17:14)
[2022-03-26] MEDS ORDERED: ASPIRIN 81MG TABLET PO ONE (17:15)
[2022-03-26] MEDS ORDERED: ONDANSETRON HCL 4MG/2ML INJ IV STA (18:02)
[2022-03-26 18:11] LABS: BASOPHILS % 1.1 % (0.0-2.0); HEMATOCRIT. 36.1 % (42.0-52.0); HEMOGLOBIN. 12.1 g/dL (14.0-18.0); LYMPHOCYTES % 28.3 % (20.0-50.0); MEAN CORPUSCULAR HEMOGLOBIN 30.3 pg (28.0-32.0); MEAN CORPUSCULAR VOLUME 90.3 fL (80.0-94.0); MEAN PLATELET VOLUME 8.6 fl (7.4-10.4); MONOCYTES % 12.2 % (2.0-8.0); NEUTROPHILS % 57.4 % (40.0-76.0); PLATELET 126 x1000/uL (130-400); RED CELL DISTRIBUTION WIDTH 15.7 % (11.6-14.6)
[2022-03-26] MEDS ORDERED: MORPHINE SULFATE 4 MG/ML CPJ (NOT FOR IM USE) IV ONE (18:15)
[2022-03-26 18:21] LABS: CHLORIDE 95 mEq/L (98-107)
[2022-03-27] MEDS ORDERED: HYDROCODONE/ACETAMINOPHEN 5/325MG TABLET PO ONE (00:30)
[2022-03-27 04:20] VITALS: BP 145/69
[2022-03-27 04:23] VITALS: BP 145/69
[2022-03-27] MEDS ORDERED: MORPHINE SULFATE 2 MG/ML CPJ (NOT FOR IM USE) IV NR (05:30)
[2022-03-27] MEDS ORDERED: IPRATROPIUM/ALBUTEROL 0.5-3(2.5)MG/3ML NEB HHN PRN (05:30)
[2022-03-27] MEDS ORDERED: IPRATROPIUM BROMIDE (0.02%) 0.5MG/2.5ML NEB HHN PRN (05:45)
[2022-03-27] MEDS ORDERED: ALBUTEROL (0.083%) 2.5MG/3ML NEB HHN PRN (05:45)
[2022-03-27 06:18] LABS: HEMATOCRIT. 35.9 % (42.0-52.0); HEMOGLOBIN. 12.4 g/dL (14.0-18.0); LYMPHOCYTES % 10.1 % (20.0-50.0); MEAN CORPUSCULAR HEMOGLOBIN 30.2 pg (28.0-32.0); MEAN CORPUSCULAR VOLUME 87.5 fL (80.0-94.0); MEAN PLATELET VOLUME 8.3 fl (7.4-10.4); MONOCYTES % 2.9 % (2.0-8.0); PLATELET 119 x1000/uL (130-400); RED BLOOD CELL COUNT 4.11 mill/uL (4.7-6.1); RED CELL DISTRIBUTION WIDTH 15.7 % (11.6-14.6)
[2022-03-27 07:34] LABS: CHLORIDE 98 mEq/L (98-107)
[2022-03-27 07:50] LABS: HDL CHOLESTEROL 72 mg/dL (40-59); LDL CHOLESTEROL 98 mg/dL (5-100)
[2022-03-27] MEDS ORDERED: ALBUTEROL (0.083%) 2.5MG/3ML NEB HHN SCH (08:00)
[2022-03-27] MEDS ORDERED: IPRATROPIUM/ALBUTEROL 0.5-3(2.5)MG/3ML NEB HHN SCH (08:00)
[2022-03-27] MEDS ORDERED: IPRATROPIUM BROMIDE (0.02%) 0.5MG/2.5ML NEB HHN SCH (08:00)
[2022-03-27] MEDS: DEXAMETHASONE 4MG TABLET PO SCH (08:45)
[2022-03-27] MEDS: METOPROLOL SUCCINATE 50MG ER TABLET PO SCH (08:46)
[2022-03-27] MEDS: CLOPIDOGREL 75MG TABLET PO SCH (08:47)
[2022-03-27] MEDS: ISOSORBIDE MONONITRATE 60MG TABLET SR 24HR PO SCH (08:48)
[2022-03-27] MEDS ORDERED: FUROSEMIDE 40MG TABLET PO SCH (09:00)
[2022-03-27] MEDS: ALBUTEROL 6.7GM HFA INHALER ORI SCH ×4 (10:22→21:03)
[2022-03-27 12:00] VITALS: BP 128/64
[2022-03-27] MEDS: HYDROCODONE/ACETAMINOPHEN 10/325MG TABLET PO PRN (18:33)
[2022-03-27] MEDS ORDERED: NALOXONE HCL 0.4MG/ML VIAL IV PRN (19:00)
[2022-03-27 20:00] VITALS: BP 128/65
[2022-03-27] MEDS ORDERED: ZOLPIDEM TARTRATE 5MG TABLET PO PRN (21:00)
[2022-03-27] MEDS ORDERED: CEFTRIAXONE 1,000 MG in DEXTROSE 5% WATER 50 ML IV NR (22:30)
[2022-03-27] MEDS ORDERED: AZITHROMYCIN 500 MG in DEXT 5% WATER 250 ML IV SCH (23:30)
[2022-03-28] VITALS: BP 141/75
[2022-03-28] MEDS ORDERED: ONDANSETRON HCL 4MG/2ML INJ IV PRN (00:15)
[2022-03-28] MEDS: ALBUTEROL 6.7GM HFA INHALER ORI SCH ×4 (02:35→14:00)
[2022-03-28] MEDS: HYDROCODONE/ACETAMINOPHEN 10/325MG TABLET PO PRN ×2 (02:42→13:46)
[2022-03-28 04:00] VITALS: BP 143/65
[2022-03-28 08:00] VITALS: BP 152/68
[2022-03-28] MEDS: METOPROLOL SUCCINATE 50MG ER TABLET PO SCH (09:13)
[2022-03-28] MEDS: DEXAMETHASONE 4MG TABLET PO SCH (09:13)
[2022-03-28] MEDS: ISOSORBIDE MONONITRATE 60MG TABLET SR 24HR PO SCH (09:13)
[2022-03-28] MEDS: CLOPIDOGREL 75MG TABLET PO SCH (09:13)
[2022-03-28 12:00] VITALS: BP 121/61
[2022-03-28 16:00] VITALS: BP 115/64
[2022-03-28] MEDS ORDERED: CLOP75TA15 PO (16:13)
[2022-03-28] MEDS ORDERED: FLUT1BLS12 IH (16:13)
[2022-03-28] MEDS ORDERED: IPRA3AMP9 NEB (16:13)
[2022-03-28] MEDS ORDERED: HYDR-4009 MT (16:13)
[2022-03-28] MEDS ORDERED: ASPI-1406 MT (16:13)
[2022-03-28] MEDS ORDERED: PANT40TA51 MT (16:13)
[2022-03-28] MEDS ORDERED: ALBU18HF2 IH (16:13)
[2022-03-28] MEDS ORDERED: P20 MT (16:13)
[2022-03-28 16:37] VITALS: BP 115/64
== END 2022-03-28 22:20 | disposition home or self-care (01) | DRG 177 ==
LOC: ER 17:20 → 7EST 03-27 00:27 → EDBEDREQTM 03-27 00:35 → EDBEDREQDT 03-27 00:35 → EDBEDREQ 03-27 00:35
PROVIDERS: ADMIT Internal Medicine; ATTEND Internal Medicine
DX: U07.1 COVID-19 (principal); J96.20 Acute and chronic respiratory failure, unspecified whether with hypoxia or hypercapnia; I11.0 Hypertensive heart disease with heart failure; I50.9 Heart failure, unspecified; J44.9 Chronic obstructive pulmonary disease, unspecified; F17.210 Nicotine dependence, cigarettes, uncomplicated; Z88.6 Allergy status to analgesic agent; Z88.8 Allergy status to other drugs, medicaments and biological substances; Z79.899 Other long term (current) drug therapy
CPT/HCPCS: 36415; 71045; 80048; 80053; 80061; 83880; 84484; 85025; 87426; 93005; 94640; 99285; C1893; C9803; J0456; J0696; J2270; J2405; J2930; J7060; J8540

== ENCOUNTER 2022-05-29 18:31 | Inpatient (IN) | payer BC, MEDICAID ==
[~2022-05-29] VITALS: Ht 172.7 cm; Wt 72.7 kg
[2022-05-29] MEDS ORDERED: IPRATROPIUM BROMIDE (0.02%) 0.5MG/2.5ML NEB HHN ONE (18:45)
[2022-05-29] MEDS ORDERED: NITROGLYCERIN 0.4MG TABLET SL SL NR (18:45)
[2022-05-29] MEDS ORDERED: ALBUTEROL (0.5%) 2.5MG/0.5ML NEB HHN ONE (18:45)
[2022-05-29] MEDS ORDERED: ASPIRIN 325MG EC TABLET PO NR (18:45)
[2022-05-29] MEDS ORDERED: IPRATROPIUM BROMIDE (0.02%) 0.5MG/2.5ML NEB HHN NR (18:45)
[2022-05-29] MEDS ORDERED: ALBUTEROL (0.5%) 2.5MG/0.5ML NEB HHN NR (18:45)
[2022-05-29 20:01] LABS: BASOPHILS % 0.6 % (0.0-2.0); EOSINOPHILS % 2.2 % (0.0-5.0); HEMATOCRIT. 39.5 % (42.0-52.0); HEMOGLOBIN. 12.8 g/dL (14.0-18.0); MEAN CORPUSCULAR VOLUME 89.3 fL (80.0-94.0); MEAN PLATELET VOLUME 9.1 fl (7.4-10.4); NEUTROPHILS % 42.2 % (40.0-76.0); PLATELET 138 x1000/uL (130-400); RED BLOOD CELL COUNT 4.43 mill/uL (4.7-6.1); RED CELL DISTRIBUTION WIDTH 14.7 % (11.6-14.6)
[2022-05-29 20:07] LABS: CHLORIDE 103 mEq/L (98-107)
[2022-05-29 20:20] LABS: ETHANOL BLOOD < 10 mg/dL
[2022-05-29] MEDS ORDERED: PREDNISONE 20MG TABLET PO NR (21:00)
[2022-05-29] MEDS ORDERED: MORPHINE SULFATE 4 MG/ML CPJ (NOT FOR IM USE) IV NR (21:45)
[2022-05-30] VITALS (7 sets, daily range): BP systolic 143–171; BP diastolic 70–109
[2022-05-30] MEDS ORDERED: ACETAMINOPHEN 325MG TABLET PO PRN (03:45)
[2022-05-30] MEDS: HYDROCODONE/ACETAMINOPHEN 5/325MG TABLET PO PRN ×4 (04:24→21:05)
[2022-05-30 08:00] LABS: *AMPHETAMINES SCREEN URINE NEGATIVE (NEGATIVE); *BARBITURATES SCREEN URINE NEGATIVE (NEGATIVE); *BENZODIAZEPINES SCREEN URINE PRESUMTIVE POSITIVE (NEGATIVE); *COCAINE SCREEN URINE NEGATIVE (NEGATIVE); CANNABINOID URINE SCREEN NEGATIVE (NEGATIVE); METHADONE URINE SCREEN NEGATIVE (NEGATIVE); OPIATES URINE SCREEN PRESUMTIVE POSITIVE (NEGATIVE); PHENCYCLIDINE URINE SCREEN NEGATIVE (NEGATIVE)
[2022-05-30] MEDS: IPRATROPIUM/ALBUTEROL 0.5-3(2.5)MG/3ML NEB HHN SCH ×4 (08:41→20:39)
[2022-05-30] MEDS: ENOXAPARIN 40MG/0.4ML SYR SUBCUT SCH (08:54)
[2022-05-30] MEDS ORDERED: NALOXONE HCL 0.4MG/ML VIAL IV PRN (11:15)
[2022-05-30] MEDS: PREDNISONE 20MG TABLET PO SCH (11:22)
[2022-05-30] MEDS ORDERED: LIDOCAINE HCL/PF 1% 2ML VIAL ONE (11:30)
[2022-05-30] MEDS: ASPIRIN 81MG TABLET PO SCH (12:23)
[2022-05-30] MEDS: LEVOFLOXACIN 500MG PREMIX 100 ML IV SCH (13:17)
[2022-05-30 13:46] LABS: BG BASE EXCESS 0.7 mmol/L (-2.0-2.0); BG CARBOXYHEMOGLOBIN 0.6 % (0.5-1.5); BG DEOXYHEMOGLOBIN 5.8 % (0.0-5.0); BG FRACTION INSPIRED OXYGEN 21; BG METHEMOGLOBIN 0.2 % (0.0-1.5); BG OXYGEN SATURATION 94.2 % (92.0-98.5); BG OXYHEMOGLOBIN 93.4 % (94.0-97.0); BG PCO2 39.4 mmHg (35.0-45.0); BG PH 7.421 (7.350-7.450); BG PO2 71.8 mmHg (75.0-100.0); BG SAMPLE SITE RIGHT RADIAL; BG TOTAL HEMOGLOBIN 13.3 g/dL (12.0-18.0); BG VENT MODE ROOM AIR
[2022-05-30 17:32] LABS: BASOPHILS % 0.1 % (0.0-2.0); HEMATOCRIT. 36.1 % (42.0-52.0); HEMOGLOBIN. 12.2 g/dL (14.0-18.0); LYMPHOCYTES % 12.6 % (20.0-50.0); MEAN CORPUSCULAR HEMOGLOBIN 29.2 pg (28.0-32.0); MEAN CORPUSCULAR VOLUME 86.8 fL (80.0-94.0); MEAN PLATELET VOLUME 9.5 fl (7.4-10.4); NEUTROPHILS % 84.3 % (40.0-76.0); PLATELET 124 x1000/uL (130-400); RED BLOOD CELL COUNT 4.16 mill/uL (4.7-6.1); RED CELL DISTRIBUTION WIDTH 14.5 % (11.6-14.6)
[2022-05-30 17:47] LABS: CHLORIDE 103 mEq/L (98-107)
[2022-05-30] MEDS: FUROSEMIDE 20MG/2ML VIAL IVP SCH (21:03)
[2022-05-30] MEDS: AMLODIPINE 10MG TABLET PO SCH (21:04)
[2022-05-31] VITALS: BP 142/75
[2022-05-31] MEDS: IPRATROPIUM/ALBUTEROL 0.5-3(2.5)MG/3ML NEB HHN SCH ×5 (00:07→20:35)
[2022-05-31] MEDS: TEMAZEPAM 15MG CAPSULE PO PRN ×2 (02:21→20:45)
[2022-05-31] MEDS: HYDROCODONE/ACETAMINOPHEN 5/325MG TABLET PO PRN ×3 (02:23→19:01)
[2022-05-31 04:00] VITALS: BP 147/78
[2022-05-31 06:41] LABS: BASOPHILS % 0.3 % (0.0-2.0); EOSINOPHILS % 0.1 % (0.0-5.0); HEMATOCRIT. 37.3 % (42.0-52.0); HEMOGLOBIN. 12.6 g/dL (14.0-18.0); LYMPHOCYTES % 24.3 % (20.0-50.0); MEAN CORPUSCULAR HEMOGLOBIN 29.4 pg (28.0-32.0); MEAN PLATELET VOLUME 9.2 fl (7.4-10.4); MONOCYTES % 8.2 % (2.0-8.0); NEUTROPHILS % 67.1 % (40.0-76.0); PLATELET 114 x1000/uL (130-400); RED BLOOD CELL COUNT 4.28 mill/uL (4.7-6.1); RED CELL DISTRIBUTION WIDTH 14.7 % (11.6-14.6)
[2022-05-31 06:43] LABS: CHLORIDE 104 mEq/L (98-107)
[2022-05-31] MEDS ORDERED: NITROGLYCERIN 50MCG/ML 10ML VIAL (CATH LAB) IV ONE (07:38)
[2022-05-31] MEDS ORDERED: NICARDIPINE 100MCG/ML 10ML VIAL (CATH LAB) IV ONE (07:38)
[2022-05-31 08:00] VITALS: BP 161/74
[2022-05-31] MEDS: AMLODIPINE 10MG TABLET PO SCH (08:23)
[2022-05-31] MEDS: PREDNISONE 20MG TABLET PO SCH (08:23)
[2022-05-31] MEDS: ASPIRIN 81MG TABLET PO SCH (08:23)
[2022-05-31] MEDS: FUROSEMIDE 20MG/2ML VIAL IVP SCH (08:24)
[2022-05-31] MEDS: ENOXAPARIN 40MG/0.4ML SYR SUBCUT SCH (08:24)
[2022-05-31] MEDS ORDERED: CLOPIDOGREL 75MG TABLET PO SCH (09:00)
[2022-05-31] MEDS ORDERED: LIDOCAINE HCL 1% 10 MG/ML 10ML VIAL ONE (09:05)
[2022-05-31 12:00] VITALS: BP 139/82
[2022-05-31] MEDS ORDERED: VERAPAMIL HCL 2.5 MG/1 ML 2ML VIAL IV ONE (13:02)
[2022-05-31] MEDS ORDERED: MIDAZOLAM HCL 2 MG/2 ML VIAL ONE (13:02)
[2022-05-31] MEDS ORDERED: FENTANYL CITRATE/PF 50MCG/ML 2ML VIAL ONE (13:02)
[2022-05-31] MEDS ORDERED: DIPHENHYDRAMINE 50MG/ML VIAL ONE (13:02)
[2022-05-31] MEDS ORDERED: LIDOCAINE HCL/PF 2% 20MG/ML 5 ML/VIAL ONE (13:04)
[2022-05-31] MEDS ORDERED: IODIXANOL 320MG/ML 100 ML BOTTLE IV ONE ×2 (13:04→14:01)
[2022-05-31] MEDS ORDERED: HEPARIN 1000 UNITS/ML 10ML ONE (13:04)
[2022-05-31] MEDS ORDERED: LIDOCAINE HCL 1% 20ML VIAL (Pyxis) INJ ONE (13:29)
[2022-05-31] MEDS ORDERED: HYDRALAZINE 20MG/ML VIAL ONE (14:25)
[2022-05-31] MEDS ORDERED: LABETALOL HCL 5MG/ML VIAL 20ML IV ONE (14:28)
[2022-05-31] MEDS ORDERED: NITROGLYCERIN 0.4MG TABLET SL SL ONE (14:30)
[2022-05-31] MEDS ORDERED: MORPHINE SULFATE 2 MG/ML CPJ (NOT FOR IM USE) IV ONE (14:37)
[2022-05-31] MEDS ORDERED: ACETAMINOPHEN 325MG TABLET PO PRN (15:00)
[2022-05-31] MEDS ORDERED: ATROPINE SULFATE 1MG/10ML SYR IV PRN (15:00)
[2022-05-31 15:28] VITALS: BP 139/71
[2022-05-31] MEDS: PANTOT AC/MIN OIL/PET HY-PHL OINT (AQUAPHOR) TOP SCH (16:16)
[2022-05-31] MEDS: LEVOFLOXACIN 500MG PREMIX 100 ML IV SCH (16:16)
[2022-05-31 20:00] VITALS: BP_SYST 131; BP_SYST 146; BP_DIAS 58; BP_DIAS 74
[2022-05-31] MEDS ORDERED: TRAMADOL 50MG TABLET PO PRN ×2 (20:30)
[2022-05-31] MEDS ORDERED: NITROGLYCERIN 0.4MG TABLET SL SL PRN (20:30)
[2022-05-31] MEDS ORDERED: MORPHINE SULFATE 2 MG/ML CPJ (NOT FOR IM USE) IV NR (20:30)
[2022-05-31] MEDS: ISOSORBIDE MONONITRATE 30MG TABLET SR 24HR PO SCH (20:45)
[2022-06-01] VITALS: BP 95/51
[2022-06-01] MEDS: IPRATROPIUM/ALBUTEROL 0.5-3(2.5)MG/3ML NEB HHN SCH ×5 (00:44→17:30)
[2022-06-01 04:00] VITALS: BP 119/68
[2022-06-01 07:19] LABS: BASOPHILS % 0.2 % (0.0-2.0); EOSINOPHILS % 0.1 % (0.0-5.0); HEMATOCRIT. 33.3 % (42.0-52.0); HEMOGLOBIN. 11.2 g/dL (14.0-18.0); MEAN CORPUSCULAR HEMOGLOBIN 29.3 pg (28.0-32.0); MEAN CORPUSCULAR VOLUME 86.7 fL (80.0-94.0); MEAN PLATELET VOLUME 9.1 fl (7.4-10.4); MONOCYTES % 9.3 % (2.0-8.0); NEUTROPHILS % 60.4 % (40.0-76.0); PLATELET 122 x1000/uL (130-400); RED BLOOD CELL COUNT 3.84 mill/uL (4.7-6.1); RED CELL DISTRIBUTION WIDTH 14.7 % (11.6-14.6)
[2022-06-01 08:06] LABS: CHLORIDE 103 mEq/L (98-107)
[2022-06-01 08:07] VITALS: BP 123/75
[2022-06-01] MEDS: ISOSORBIDE MONONITRATE 30MG TABLET SR 24HR PO SCH (09:06)
[2022-06-01] MEDS: ASPIRIN 81MG TABLET PO SCH (09:06)
[2022-06-01] MEDS: AMLODIPINE 10MG TABLET PO SCH (09:06)
[2022-06-01] MEDS: PREDNISONE 20MG TABLET PO SCH (09:06)
[2022-06-01] MEDS: HYDROCODONE/ACETAMINOPHEN 5/325MG TABLET PO PRN ×2 (09:06→14:17)
[2022-06-01] MEDS: PANTOT AC/MIN OIL/PET HY-PHL OINT (AQUAPHOR) TOP SCH (09:07)
[2022-06-01 11:47] VITALS: BP 102/52
[2022-06-01] MEDS: LEVOFLOXACIN 500MG PREMIX 100 ML IV SCH (14:16)
[2022-06-01 14:49] VITALS: BP 102/52
[2022-06-01 15:56] VITALS: BP 109/61
[2022-06-02] MEDS ORDERED: LEVOFLOXACIN 500MG TABLET PO SCH (11:00)
== END 2022-06-01 19:45 | disposition home or self-care (01) | DRG 286 ==
LOC: ER 18:31 → MICUSO 21:40 → EDBEDREQTM 21:44 → EDBEDREQ 21:44 → 3WST 05-30 01:20
PROVIDERS: ADMIT Internal Medicine; ATTEND Internal Medicine
PROC: 4A023N7 Measurement of Cardiac Sampling and Pressure, Left Heart, Percutaneous Approach (ICD-10-PCS; principal; 2022-05-31)
PROC: B211YZZ Fluoroscopy of Multiple Coronary Arteries using Other Contrast (ICD-10-PCS; 2022-05-31)
PROC: B240ZZ3 Ultrasonography of Single Coronary Artery, Intravascular (ICD-10-PCS; 2022-05-31)
PROC: B41FYZZ Fluoroscopy of Right Lower Extremity Arteries using Other Contrast (ICD-10-PCS; 2022-05-31)
PROC: 02HV33Z Insertion of Infusion Device into Superior Vena Cava, Percutaneous Approach (ICD-10-PCS; 2022-05-31)
PROC: B5181ZA Fluoroscopy of Superior Vena Cava using Low Osmolar Contrast, Guidance (ICD-10-PCS; 2022-05-31)
PROC: B548ZZA Ultrasonography of Superior Vena Cava, Guidance (ICD-10-PCS; 2022-05-31)
DX: T82.855A Stenosis of coronary artery stent, initial encounter (principal); I50.33 Acute on chronic diastolic (congestive) heart failure; J96.01 Acute respiratory failure with hypoxia; I25.110 Atherosclerotic heart disease of native coronary artery with unstable angina pectoris; J44.1 Chronic obstructive pulmonary disease with (acute) exacerbation; I11.0 Hypertensive heart disease with heart failure; I73.9 Peripheral vascular disease, unspecified; I16.0 Hypertensive urgency; F17.210 Nicotine dependence, cigarettes, uncomplicated; Z88.6 Allergy status to analgesic agent; I25.2 Old myocardial infarction; Z95.1 Presence of aortocoronary bypass graft; Z88.8 Allergy status to other drugs, medicaments and biological substances; Z79.899 Other long term (current) drug therapy; Y83.1 Surgical operation with implant of artificial internal device as the cause of abnormal reaction of the patient, or of later complication, without mention of misadventure at the time of the procedure; Y92.89 Other specified places as the place of occurrence of the external cause
CPT/HCPCS: 36415; 36573; 36600; 71045; 80048; 80053; 80061; 80305; 80320; 82375; 82805; 83036; 83735; 83880; 84484; 85025; 85347; 85379; 87340; 92978; 93005; 93306; 93458; 93880; 94640; 99285; C1725; C1726; C1753; C1769; C1887; C1893; J0360; J1200; J1644; J1650; J1940; J1956; J2250; J2270; J3010; J3490; J7512; Q9967; G0480